=== PATIENT | male | born 1940 | race Caucasian/White ===

== ENCOUNTER 2023-08-14 10:23 | Observation (INO) ==
--- NOTE | 2023-08-13 10:22 | Anesthesiology Consultation ---
Date of Service August 13, 2023 Assessment & Plan (1) Encounter for pre-operative examination: Plan - check BSG am DOS. - [place] [place] pacemaker. MRSA positive 06/24/23: requires contact precautions - Case discussed in extensive detail with Dr. Bassett who advised patient is acceptable to proceed with surgery as scheduled without further evaluation or testing, advised to surgeon's discretion regarding new gluteal wound. Surgeon's office notified. OR, surgeon's office and infection control made aware of recent MRSA positive report as patient will require contact precautions. - wound care 08/12/23: "...new wound to his left gluteal region. Most likely related to stool incontinence...also seen today for a vascular area to his left calf...history of vascular ulcerations to his lower legs, feet and toes...today left calf has improved, smaller in size. 06/24/23: resident wound culture + MRSA...left calf wound...left heel wound..." - cardiology office visit 02/05/23: "...history of significant CAD. In the recent past he's had a noninvasive ALEX to the LAD, stent to the Cx, and in June 2019 a stent to the RCA...urologic problems...being considered for surgical repa ir...work-up for preoperative cardiac risk evaluation and this included a stress test which was positive...proceeded to catheterization which showed residual nonobstructive CAD...cardiac catheterization showed no residual obstructive disease...would be considered low to intermediate risk for urologic surgery..." - dulaglutide instructions: Last dose 08/06/23 per PAT RN. - Per assessment consultant on 08/13/23: No known infectious disease contacts, current infectious disease symptoms in past 10 days or COVID positive test result in the past 30 days. COVID test received from [facility] is old for procedure, order placed for COVID test DOS. Chart Review Chart Review: Acceptable Risk for Surgery and Patient NOT seen in Pre Admission Testing History Surgery Operation Date: 08/14/23 11:50 Proposed Procedures p Transurethral Resection Prostate, - Rich Doran DO s Possible Suprapubic Catheter - Rich Doran DO Height/Weight Height: 5 ft 11 in Weight: 104.326 kg Allergies Allergy/AdvReac Type Severity Reaction Status Date / Time [place]ip[place] [[place] [facility] Allergy Unknown listed in Verified 08/13/23 10:36 retirement H&P Medications Home Medications Medication Instructions Recorded Confirmed Last Taken Prevagen 1 cap PO QAM 08/13/23 08/13/23 Unknown acetaminophen 325 mg tablet 650 mg PO QID PRN Pain 08/13/23 08/13/23 Unknown acetic acid 0.25 % irrigation 10 ml irrigation Q7D 08/13/23 08/13/23 Unknown solution albuterol sulfate 2.5 mg/3 mL 2.5 mg inhalation QID PRN Wheezing 08/13/23 08/13/23 Unknown (0.083 %) solution for nebulization allopurinol 100 mg tablet 100 mg PO QAM 08/13/23 08/13/23 Unknown aspirin 81 mg capsule 81 mg PO QAM 08/13/23 08/13/23 Unknown atorvastatin 40 mg tablet 40 mg PO QAM 08/13/23 08/13/23 Unknown bisacodyl 10 mg rectal suppository 10 mg [place] DAILY PRN Constipation 08/13/23 08/13/23 Unknown (Dulcolax (bisacodyl)) celecoxib 200 mg capsule 200 mg PO DAILY PRN Breakthrough 08/13/23 08/13/23 Unknown Pain cetylpyridinium chloride 1 bree mucous membrane Q4H PRN Sore 08/13/23 08/13/23 Unknown Throat coal tar 0.5 % shampoo 1 applic topical UD 08/13/23 08/13/23 Unknown dextromethorphan-guaifenesin 10 10 ml PO Q4H PRN Cough 08/13/23 08/13/23 Unknown mg-100 mg/5 mL oral liquid (Tussin DM) dulaglutide 1.5 mg/0.5 mL 1.5 mg subcut Q7D 08/13/23 08/13/23 Unknown subcutaneous pen injector (Trulicity) flavoxate 100 mg tablet 100 mg PO Q6H PRN Bladder Spasms 08/13/23 08/13/23 Unknown fluticasone furoate 100 1 ea inhalation QAM 08/13/23 08/13/23 Unknown mcg-vilanterol 25 mcg/dose inhalation powder (Breo Ellipta) honey 80 % topical gel (MediHoney 1 applic topical BID 08/13/23 08/13/23 Unknown (honey)) ketoconazole 2 % topical cream 1 applic topical UD 08/13/23 08/13/23 Unknown linaclotide 72 mcg capsule 72 mcg PO QAM 08/13/23 08/13/23 Unknown (Linzess) metoprolol succinate 50 mg 50 mg PO QAM 08/13/23 08/13/23 Unknown tablet,extended release 24 hr mineral oil 118 ml [place] DAILY PRN Constipation 08/13/23 08/13/23 Unknown mirabegron 50 mg tablet,extended 50 mg PO QAM 08/13/23 08/13/23 Unknown release 24 hr (Myrbetriq) polyethylene glycol 3350 17 17 g PO QAM 08/13/23 08/13/23 Unknown gram/dose oral powder (Miralax) sodium chloride 0.9 % (flush) 10 ml intra-catheter Q1H PRN 08/13/23 08/13/23 Unknown (Normal Saline Flush 0.9 % hematuria injection syringe) sodium chloride 0.9 % nasal spray 1 spray intranasal TID 08/13/23 08/13/23 Unknown aerosol (Nasal Mist) sodium hypochlorite 0.125 % 1 irrig topical BID 08/13/23 08/13/23 Unknown solution (Dakin's Solution) torsemide 20 mg tablet 80 mg PO QAM 08/13/23 08/13/23 Unknown zinc oxide 40 % topical ointment 1 applic topical UD PRN MASD 08/13/23 08/13/23 Unknown Past Medical History Medical History (Updated 08/13/23 @ 14:00 by Karlene Ferguson PA-C) Bladder cancer BPH (benign prostatic hyperplasia) CAD (coronary artery disease) s/p CABG x 1 to LAD, stent to Cx and stent to RCA in 06/2019 per cardio records Chronic renal disease, stage IV Chronic systolic (congestive) heart failure EF > 50% Constipation drug induced COPD (chronic obstructive pulmonary disease) DM2 (diabetes mellitus, type 2) Gluteal cleft wound 08/12/23 per wound care Gout Heart block Hereditary spastic paraplegia History of MRSA infection 06/2023 History of venous stasis ulcer of lower leg lt calf, MRSA positive 06/2023 Hx of acute renal failure Hypercholesteremia Hypertension 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 heart failure, with stage 1 through stage 4 chronic kidney disease, or unspecified chronic kidney disease IBS (irritable bowel syndrome) Ischemic cardiomyopathy Neurogenic bladder chronic foster cath in place [facility] resident Pacemaker Personal history of other infectious and parasitic diseases 06/25/2023, MRSA of left calf wound-s/p 10 days of clindamycin, follows with wound care per RN [place] with [facility] mendosa Past Surgical History Surgical History Presence of urogenital implants S/P placement of cardiac pacemaker Surgical history unknown only 2 surgeries noted on retirement report as of 08/12/23 Social History Smoking Status: Unknown if ever smoked Testing Laboratory Results COVID test 08/08/23: negative. 07/24/23 WBC: 12.7 H/H: 12/40 PLATELETS: 312,000 07/28/23 SODIUM: 139 POTASSIUM: 3.8 CHLORIDE: 103 CO2: 31 BUN: 57 CREATININE: 2 GLUCOSE: 151 Urine culture: > 100,000 cfu/ml E coli ESBL 50,000 cfu/ml Stenotrophomonas maltophilia Electrocardiogram Date: 07/27/23 Demand pacemaker Unusual P axis, possible ectopic atrial bradycardia with occasional and consecutive PVs and fusion complexes Left axis deviation RBBB LVH EKG 07/24/23 "Ventricular paced rhythm at 101 bpm, PVC" No available tracing Chest X-Ray Date: 07/24/23 No active cardiopulmonary disease. Cardiac pacemaker device No significant changes Echocardiogram Date: 12/10/22 EF 55-60% Normal LV wall motion Mild mitral regurgitation Mild tricuspid regurgitation Stress Test Date: 12/10/22 Pharmacologic Medium reversible anterior defect, medium reversible apical defect Cardiac Catheterization Date: 01/15/23 Left main: angiographically normal LAD: proximally there is mild diffuse disease. Stent begins in the LAD and extends into the first diagonal. The LAD past this is 100% occluded. The more distal LAD is supplied by ALEX to LAD. Cx: mild diffuse disease large OM branches; diffuse disease in the trivial OM1 RCA: 40-50% proximal disease. Mild diffuse disease in the mid AV groove. Mid to distal AV groove has a patent stent. Distal AV grove has 40% disease. Otherwise there are mild luminus irregularities present in the system ALEX to the LAD widely patent, downstream LAD supplied by the graft has minimal disease EF 50%, multiple PVCs Residual stable CAD Other Testing Abdomen pelvis CT 06/25/23 1. No renal or ureteral stones. No hydronephrosis. 2. The tip of the Foster catheter is located within the bladder lumen. However, the balloon of the Foster catheter is located within the prostatic urethra. Therefore, this should be removed/reposition. 3. Mild bladder wall thickening. This could be due to underdistention or chronic outlet obstruction from the enlarged prostate gland. Recommend correlation with urinalysis to exclude a cystitis. 4. Healing/healed left anterior seventh rib fracture. No acute fractures identified. 5. No bowel wall thickening or obstruction. 6. Moderate fecal retention. 7. Additional findings as described above.
--- NOTE | 2023-08-13 10:25 | PAT Medication Instructions ---
Medication Instructions Date of Service August 13, 2023 Home Medications Prevagen 1 cap PO QAM acetaminophen 325 mg tablet 650 mg PO QID PRN Pain acetic acid 0.25 % irrigation solution 10 ml irrigation Q7D albuterol sulfate 2.5 mg/3 mL (0.083 %) solution for nebulization 2.5 mg inhalation QID PRN Wheezing allopurinol 100 mg tablet 100 mg PO QAM aspirin 81 mg capsule 81 mg PO QAM atorvastatin 40 mg tablet 40 mg PO QAM bisacodyl 10 mg rectal suppository (Dulcolax (bisacodyl)) 10 mg [place] DAILY PRN Constipation celecoxib 200 mg capsule 200 mg PO DAILY PRN Breakthrough Pain cetylpyridinium chloride 1 bree mucous membrane Q4H PRN Sore Throat coal tar 0.5 % shampoo 1 applic topical UD dextromethorphan-guaifenesin 10 mg-100 mg/5 mL oral liquid (Tussin DM) 10 ml PO Q4H PRN Cough dulaglutide 1.5 mg/0.5 mL subcutaneous pen injector (Trulicity) 1.5 mg subcut Q7D flavoxate 100 mg tablet 100 mg PO Q6H PRN Bladder Spasms fluticasone furoate 100 mcg-vilanterol 25 mcg/dose inhalation powder (Breo Ellipta) 1 ea inhalation QAM honey 80 % topical gel (MediCritique^Itney (honey)) 1 applic topical BID ketoconazole 2 % topical cream 1 applic topical UD linaclotide 72 mcg capsule (Linzess) 72 mcg PO QAM metoprolol succinate 50 mg tablet,extended release 24 hr 50 mg PO QAM mineral oil 118 ml [place] DAILY PRN Constipation mirabegron 50 mg tablet,extended release 24 hr (Myrbetriq) 50 mg PO QAM polyethylene glycol 3350 17 gram/dose oral powder (Miralax) 17 g PO QAM sodium chloride 0.9 % (flush) (Normal Saline Flush 0.9 % injection syringe) 10 ml intra-catheter Q1H PRN hematuria sodium chloride 0.9 % nasal spray aerosol (Nasal Mist) 1 spray intranasal TID sodium hypochlorite 0.125 % solution (Dakin's Solution) 1 irrig topical BID torsemide 20 mg tablet 80 mg PO QAM zinc oxide 40 % topical ointment 1 applic topical UD PRN MASD Continue as directed acetic acid 0.25 % irrigation solution 10 ml irrigation Q7D sodium chloride 0.9 % (flush) (Normal Saline Flush 0.9 % injection syringe) 10 ml intra-catheter Q1H PRN hematuria sodium hypochlorite 0.125 % solution (Dakin's Solution) 1 irrig topical BID ASK your surgeon for instructions celecoxib 200 mg capsule 200 mg PO DAILY PRN Breakthrough Pain ASK your prescriber and surgeon aspirin 81 mg capsule 81 mg PO QAM STOP taking 2 weeks before surgery (or as soon as possible) Prevagen 1 cap PO QAM STOP taking 7 days before surgery dulaglutide 1.5 mg/0.5 mL subcutaneous pen injector (Trulicity) 1.5 mg subcut Q7D (per records Trulicity on hold since 08/06/23- do not restart until after surgery 08/14/23) STOP taking 24 hours before surgery honey 80 % topical gel (DramaFeverney (honey)) 1 applic topical BID ketoconazole 2 % topical cream 1 applic topical UD DO NOT take the morning of surgery bisacodyl 10 mg rectal suppository (Dulcolax (bisacodyl)) 10 mg [place] DAILY PRN Constipation cetylpyridinium chloride 1 bree mucous membrane Q4H PRN Sore Throat coal tar 0.5 % shampoo 1 applic topical UD dextromethorphan-guaifenesin 10 mg-100 mg/5 mL oral liquid (Tussin DM) 10 ml PO Q4H PRN Cough flavoxate 100 mg tablet 100 mg PO Q6H PRN Bladder Spasms linaclotide 72 mcg capsule (Linzess) 72 mcg PO QAM mineral oil 118 ml [place] DAILY PRN Constipation mirabegron 50 mg tablet,extended release 24 hr (Myrbetriq) 50 mg PO QAM polyethylene glycol 3350 17 gram/dose oral powder (Miralax) 17 g PO QAM torsemide 20 mg tablet 80 mg PO QAM Take morning of surgery With a small sip of water, OTHERWISE NOTHING TO EAT OR DRINK AFTER MIDNIGHT: acetaminophen 325 mg tablet 650 mg PO QID PRN Pain (if needed) albuterol sulfate 2.5 mg/3 mL (0.083 %) solution for nebulization 2.5 mg inhalation QID PRN Wheezing (if needed) allopurinol 100 mg tablet 100 mg PO QAM atorvastatin 40 mg tablet 40 mg PO QAM fluticasone furoate 100 mcg-vilanterol 25 mcg/dose inhalation powder (Breo Ellipta) 1 ea inhalation QAM metoprolol succinate 50 mg tablet,extended release 24 hr 50 mg PO QAM sodium chloride 0.9 % nasal spray aerosol (Nasal Mist) 1 spray intranasal TID Take evening before surgery acetaminophen 325 mg tablet 650 mg PO QID PRN Pain (if needed) albuterol sulfate 2.5 mg/3 mL (0.083 %) solution for nebulization 2.5 mg inhalation QID PRN Wheezing (if needed) bisacodyl 10 mg rectal suppository (Dulcolax (bisacodyl)) 10 mg [place] DAILY PRN Constipation (if needed) cetylpyridinium chloride 1 bree mucous membrane Q4H PRN Sore Throat (if needed) coal tar 0.5 % shampoo 1 applic topical UD (if needed) dextromethorphan-guaifenesin 10 mg-100 mg/5 mL oral liquid (Tussin DM) 10 ml PO Q4H PRN Cough (if needed) flavoxate 100 mg tablet 100 mg PO Q6H PRN Bladder Spasms (if needed) mineral oil 118 ml [place] DAILY PRN Constipation (if needed) sodium chloride 0.9 % nasal spray aerosol (Nasal Mist) 1 spray intranasal TID Other Notes If you have any questions please call us at [phone] or [phone] or [phone] or [phone]
[2023-08-14] MEDS: LACTATED RINGER'S 1,000 ML IV SCH (11:08)
[2023-08-14] MEDS ORDERED: ePHEDrine sulfate 50 MG/ML AMP IV PRN (11:27)
[2023-08-14] MEDS ORDERED: PROMETHAZINE HCL 6.25 MG in SODIUM CHLORIDE 0.9% 50 ML IV PRN (11:27)
[2023-08-14] MEDS ORDERED: ATROPINE SULFATE 0.1 MG/ML 10ML SYR IV PRN (11:27)
[2023-08-14] MEDS ORDERED: HYDROmorphone INJ 1 MG/ML SYRINGE IV PRN (11:27)
--- NOTE | 2023-08-14 11:27 | History & Physical Report ---
Date of Service August 14, 2023 Assessment & Plan (1) Bladder cancer: (2) Status post implantation of artificial urinary sphincter: (3) Chronic indwelling Foster catheter: (4) Neurogenic bladder: Plan Risks and benefits discussed at length for procedure. These include bleeding, infection, injury to surrounding tissues or organs, and risks associated with anesthesia. Patient states understanding and agrees to proceed. Will sign consent and proceed. Significant chronic issues with chronic leakage and bother. Was considering options for managment. Significant issues with retention, catheter issues, and control. Chronic medical issues at baseline. Plan for TURP with possible suprapubic catheter. History of Present Illness Primary Care Provider: Tami Waddell, Patient here for procedure. No changes in medical issues. No major changes in urinary issues. Continued issues and concerns. No change in pain or discomfort. No severe fevers or chills. No chest pain or shortness of breath. Risks and benefits discussed at length for procedure. These include bleeding, infection, injury to surrounding tissues or organs, and risks associated with anesthesia. Patient and/or family states understanding and agrees to proceed. Consent and supporting information completed. Allergies Allergy/AdvReac Type Severity Reaction Status Date / Time amlodipine [From [facility]] Allergy Unknown listed in Verified 08/14/23 10:50 retirement H&P Home Medications Medication Instructions Recorded Confirmed Type Prevagen 1 cap PO QAM 08/13/23 08/14/23 History acetaminophen 325 mg tablet 650 mg PO QID PRN Pain 08/13/23 08/14/23 History acetic acid 0.25 % irrigation 10 ml irrigation Q7D 08/13/23 08/14/23 History solution albuterol sulfate 2.5 mg/3 mL 2.5 mg inhalation QID PRN Wheezing 08/13/23 08/14/23 History (0.083 %) solution for nebulization allopurinol 100 mg tablet 100 mg PO QAM 08/13/23 08/14/23 History aspirin 81 mg capsule 81 mg PO QAM 08/13/23 08/14/23 History atorvastatin 40 mg tablet 40 mg PO QAM 08/13/23 08/14/23 History bisacodyl 10 mg rectal suppository 10 mg [place] DAILY PRN Constipation 08/13/23 08/14/23 History (Dulcolax (bisacodyl)) celecoxib 200 mg capsule 200 mg PO DAILY PRN Breakthrough 08/13/23 08/14/23 History Pain cetylpyridinium chloride 1 bree mucous membrane Q4H PRN Sore 08/13/23 08/14/23 History Throat coal tar 0.5 % shampoo 1 applic topical UD 08/13/23 08/14/23 History dextromethorphan-guaifenesin 10 10 ml PO Q4H PRN Cough 08/13/23 08/14/23 History mg-100 mg/5 mL oral liquid (Tussin DM) dulaglutide 1.5 mg/0.5 mL 1.5 mg subcut Q7D 08/13/23 08/14/23 History subcutaneous pen injector (Trulicity) flavoxate 100 mg tablet 100 mg PO Q6H PRN Bladder Spasms 08/13/23 08/14/23 History fluticasone furoate 100 1 ea inhalation QAM 08/13/23 08/14/23 History mcg-vilanterol 25 mcg/dose inhalation powder (Breo Ellipta) honey 80 % topical gel (MediHoney 1 applic topical BID 08/13/23 08/14/23 History (honey)) ketoconazole 2 % topical cream 1 applic topical UD 08/13/23 08/14/23 History linaclotide 72 mcg capsule 72 mcg PO QAM 08/13/23 08/14/23 History (Linzess) metoprolol succinate 50 mg 50 mg PO QAM 08/13/23 08/14/23 History tablet,extended release 24 hr mineral oil 118 ml [place] DAILY PRN Constipation 08/13/23 08/14/23 History mirabegron 50 mg tablet,extended 50 mg PO QAM 08/13/23 08/14/23 History release 24 hr (Myrbetriq) polyethylene glycol 3350 17 17 g PO QAM 08/13/23 08/14/23 History gram/dose oral powder (Miralax) sodium chloride 0.9 % (flush) 10 ml intra-catheter Q1H PRN 08/13/23 08/14/23 History (Normal Saline Flush 0.9 % hematuria injection syringe) sodium chloride 0.9 % nasal spray 1 spray intranasal TID 08/13/23 08/14/23 History aerosol (Nasal Mist) sodium hypochlorite 0.125 % 1 irrig topical BID 08/13/23 08/14/23 History solution (Dakin's Solution) torsemide 20 mg tablet 80 mg PO QAM 08/13/23 08/14/23 History zinc oxide 40 % topical ointment 1 applic topical UD PRN MASD 08/13/23 08/14/23 History Past Med/Surg History Medical History Gluteal cleft wound 08/12/23 per wound care History of MRSA infection 06/2023 group home resident Hypercholesteremia Hypertension IBS (irritable bowel syndrome) History of venous stasis ulcer of lower leg lt calf, MRSA positive 06/2023 Gout Personal history of other infectious and parasitic diseases 06/25/2023, MRSA of left calf wound-s/p 10 days of clindamycin, follows with wound care per KASSY Oakes with [facility] mendosa Chronic systolic (congestive) heart failure EF > 50% 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 heart failure, with stage 1 through stage 4 chronic kidney disease, or unspecified chronic kidney disease Hx of acute renal failure Chronic renal disease, stage IV DM2 (diabetes mellitus, type 2) CAD (coronary artery disease) s/p CABG x 1 to LAD, stent to Cx and stent to RCA in 06/2019 per cardio records Ischemic cardiomyopathy Hereditary spastic paraplegia Pacemaker Heart block BPH (benign prostatic hyperplasia) Neurogenic bladder chronic foster cath in place Bladder cancer COPD (chronic obstructive pulmonary disease) Constipation drug induced Surgical History Surgical history unknown only 2 surgeries noted on retirement report as of 08/12/23 Presence of urogenital implants S/P placement of cardiac pacemaker Social History Smoking Status: Unknown if ever smoked Preferred Language: Spanish Communication Ability: unknown [place] Required: No Current Living Situation: Skilled Nursing [facility] Assistive Devices Comment: unknown Review of Systems All systems reviewed & are unremarkable except as noted in HPI & below Physical Exam Physical Exam: General: Alert/Arousable. No Acute illness. Baseline significant chronic issues. HEENT: Inspection normal. Normal inspection of face. Normal inspection of neck. Psychologic: Normal affect/No change in mentation. Respiratory: No use of accessory muscles. No respiratory changes or exacerbation or changes with tachypnea or dyspnea. Cardiovascular: No tachycardia Skin: Spry and Dry. No new rashes or visible lesions. Abdomen: Normal inspection. No guarding. Results & Data Vital Signs (Past 12 Hours) Vital Signs Temp Pulse Resp BP Pulse Ox O2 Del Method 08/14/23 10:54 Room Air 08/14/23 10:54 36.6 C 78 20 131/74 97 Room Air PG Care Time/CCT Total # of Minutes Spent Total Time Spent with Patient: Total time spent is greater than 50% in coordination of care (as documented) at patient's floor/unit and/or counseling patient: Coding Level of Care Code None Diagnoses Bladder cancer C67.9 Status post implantation of artificial urinary sphincter Z96.0 Chronic indwelling Foster catheter Z97.8 Neurogenic bladder N31.9
[2023-08-14] MEDS ORDERED: DEXAMETHASONE SOD INJ 4 MG/ML VIAL ONE (11:43)
[2023-08-14] MEDS ORDERED: PROPOFOL IV EMULSION 10 MG/ML 20 ML VIAL IV ONE (11:43)
[2023-08-14] MEDS ORDERED: LIDOCAINE 2% 2 ML VIAL/AMP(20MG/ML) INFIL ONE (11:43)
[2023-08-14] MEDS ORDERED: ONDANSETRON INJ 2 MG/ML 2 ML VIAL ONE (11:43)
[2023-08-14] MEDS ORDERED: fentaNYL citrate PF 100 MCG/2 ML VIAL ONE (11:44)
[2023-08-14] MEDS ORDERED: PHENYLEPHRINE 100MCG/ML 10ML SYR IV ONE (12:53)
--- NOTE | 2023-08-14 13:21 | Operative Report ---
PG Post Operative Report Pre & Post Diagnosis Operation Date: 08/14/23 11:50 Pre-Op Diagnosis: Bladder Cancer, Neurogenic Bladder Post-Op Diagnosis: Bladder Cancer, Neurogenic Bladder I identified the patient and participated in the time-out.: Yes Procedure Operation Date: 08/14/23 11:50 Actual Procedures Transurethral Resection of Prostate, Transurethral resection of bladder tumor, large - Rich Doran DO Surgeon Rich Doran, II, DO Spin Tank Tender None Estimated Blood Loss 10 Findings Consistent with Post-Op Diagnosis Large Mass vs Regrowth within the prostatic urethra along the left lateral wall. Significant Prostate tissue with obstruction. Papillary vs edematous lesion along the anterior bladder/dome. Approx 6.2 cm area resected Polypoid lesion of right trigone near UO. Specimens Prostate adenoma. Resection Dome/Anterior bladder Resection of Right Trigone Drains 22Fr Coude Catheter Anesthesia Type General Complications none Disposition Disposition: Recovery Room Indications Patient with obstruction due to prostate enlargement. Risks and benefits discussed at length. Description of Procedure Patient was consented and brought back to the operating room. Patient was placed under anesthesia in the supine position and moved to the dorsal lithotomy position. Patient was prepped and draped in the regular sterile fashion. A time out was completed. A 30degree Cystoscope was placed into the bladder and the entire bladder was examined. The UO's were identified as well as the bladder neck, trigone, dome, and the other important landmarks. The prostatic urethra and large lobes/adenoma was assessed and the veru and bladder neck identified and area/size was assessed. There was a nodular appearing mass versus regrowth within the prostatic urethra along the left lateral wall. A cause considerable obstructive issues within the prostatic urethra. There were numerous large prostatic varicosities throughout this tissue. The tissue was difficult to bypassed. The scope had to be maneuvered past it. Within the bladder there were multiple areas of edematous changes there were thickening along the posterior wall. The large diverticulum along the posterior wall was noted with inflammatory changes along it. Near the right UO in the right trigone there was a polypoid lesion that was discovered. Along the anterior portion of the bladder and the dome there was what appeared to be a large patch of papillary lesion. Possibly inflammatory versus edematous changes but with an irregular appearance to it. The location of the lesion along the dome and anterior bladder was specifically concerning due to the original plan to move forward with suprapubic catheter placement. Due to the presence of the lesion it was decided to hold off and to focus on resecting the lesion in order to fully assess it. The resection scope was placed and the fine bipolar loop was selected. Starting at the 5 and 7 o'clock positions, a channel was created from bladder neck to the veru. The entire left lateral wall was then resected. The tissue was nodular in appearance. It had multiple thickened areas and a large amount of varicosity throughout the tissue. The entire tissue was able to be resected down to what appeared to be capsule fibers. The Specimen was removed and sent for analysis. The resection bed and any bleeding areas were fulgurated/cauterized and the entire area inspected. All bleeding was controlled. The small polypoid lesion near the right UO was then assessed. This was able to be resected. The UO was not involved in the resection. And urine was noted to be effluxing out of the ureter bilaterally without major issue. This was sent for pathologic analysis. The anterior bladder/dome was then resected. A larger area was noted with large amount of inflammatory changes around it. There was inflammation along the posterior wall as well. These areas of inflammation were fulgurated. With the lesion resected from the anterior bladder this was then also sent for pathologic analysis. The bladder was inspected a final time. All bleeding had been controlled. The bladder lesions had been adequately dealt with with resection and fulguration. The ureters were draining well without major issue. The severe obstruction within the prostatic urethra had been drastically reduced and cleared. The bladder was emptied and irrigated. All specimen and debris was removed. The scope was removed with the bladder partially full. A catheter was placed and balloon elevated. This was easily irrigated. The patient was cleaned, aroused from anesthesia, and transferred to the pacu in stable condition having tolerated the procedure well with no complications. I was present and participated in all aspects of the procedure. The patient will be monitored in the PACU until transferred. Will plan to maintain catheter for approximately a month. Will have patient return for follow-up in approximately 3-4 weeks. Will discuss pathology at that time. Could consider catheter removal at that time. I attest to the content of the Intraoperative Record and any orders documented therein. Any exceptions are noted below.
[2023-08-14] MEDS ORDERED: bisacodyL 10 MG SUPP PR PRN (13:26)
[2023-08-14] MEDS ORDERED: ALBUTEROL 0.083% NEBU SOLN 3 ML VIAL INH PRN (13:26)
[2023-08-14] MEDS ORDERED: oxyBUTYnin chloride 5 MG TAB PO PRN (13:27)
[2023-08-14] MEDS ORDERED: MoRPHine SULFATE 2 MG/ML CARP IV PRN (13:27)
[2023-08-14] MEDS ORDERED: PHENAZOPYRIDINE HCL 200 MG TAB PO PRN (13:27)
[2023-08-14] MEDS ORDERED: ONDANSETRON INJ 2 MG/ML 2 ML VIAL IV PRN (13:27)
[2023-08-14] MEDS ORDERED: oxyCODONE/ACETAMINOPHEN 5mg/325mg TAB PO PRN (13:27)
--- NOTE | 2023-08-14 14:17 | Anesthesiology Progress Note ---
Date of Service August 14, 2023 Anesthesia Post Procedure Vital Signs Vital Signs: Temp Pulse Pulse Resp BP Pulse Ox O2 Del Method 08/14/23 14:15 79 14 102/51 L 92 Room Air 08/14/23 14:05 84 16 101/56 L 92 Room Air 08/14/23 13:55 78 16 104/54 L 95 Room Air 08/14/23 13:45 77 17 107/54 L 97 Room Air 08/14/23 13:35 83 17 105/55 L 99 Room Air 08/14/23 13:29 36.0 C L 83 15 124/69 100 Room Air 08/14/23 10:54 Room Air 08/14/23 10:54 36.6 C 78 20 131/74 97 Room Air Transfer of Care Handoff Completed per policy Notes Mental Status: alert / awake / arousable and participated in evaluation Nausea / Vomiting: adequately controlled Pain: adequately controlled Airway Patency, RR, SpO2: stable & adequate BP & HR: stable & adequate Hydration State: stable & adequate Anesthetic Complications: no major complications apparent and Pt Satisfied with anesthetic care
[2023-08-14] MEDS ORDERED: BUTT PASTE (ZINC OXIDE 16%) 171 APPLN/57 GM JAR EXT PRN (15:17)
[2023-08-14] MEDS: PIPER/TAZO 4.5g in D5W MINI-B 100 ML IV ONE (15:26)
[2023-08-14] MEDS: SODIUM CHLORIDE 0.9% 1,000 ML IV SCH (16:56)
[2023-08-14 18:01] LABS: Hemoglobin 13.2 g/dl (14.0-18.0); Mean Corpuscular Hemoglobin 27.4 pg (25.0-34.0); Mean Corpuscular Hgb Conc 31.4 g/dL (32.0-36.0); Mean Corpuscular Volume 87.1 fL (80.0-100.0); Mean Platelet Volume 10.9 fL (9.4-12.4); Platelet Count 140 K/uL (130-400); RDW Coefficient of Variation 16.3 % (11.5-14.5); RDW Standard Deviation 51.5 fL (36.4-46.3); Red Blood Count 4.82 M/uL (4.70-6.10); White Blood Count 7.72 K/ul (4.8-10.8)
[2023-08-14 18:16] LABS: BUN Creatinine Ratio 18.7 (10-20); Calcium 9.1 mg/dl (8.6-10.3); Creatinine Clr Calc Pharmacy 40.9 ml/min; Est GFR (African American) 43.5 ml/min; Est GFR (Non-African American) 37.5 ml/min; Potassium 4.5 mmol/L (3.5-5.1)
[2023-08-14 18:29] LABS: Basophils # (auto) 0.02 K/uL (0.00-0.20); Basophils % (auto) 0.3 %; Eosinophils # (auto) 0.03 K/uL (0.00-0.50); Eosinophils % (auto) 0.4 %; Immature Granulocytes # (auto) 0.02 K/uL (0.01-0.20); Immature Granulocytes % (auto) 0.3 %; Lymphocytes % (auto) 5.2 %; Monocytes # (auto) 0.12 K/uL (0.11-0.59); Monocytes % (auto) 1.6 %; Neutrophils # (auto) 7.13 K/uL (1.40-6.50); Neutrophils % (auto) 92.2 %; Ovalocytes 1+
[2023-08-14] MEDS ORDERED: GLUCAGON FOR INJ 1 MG VIAL SQ PRN (18:51)
[2023-08-14] MEDS ORDERED: GLUCOSE 40% GEL 15 GM TUBE PO PRN (18:51)
[2023-08-14] MEDS ORDERED: GLUCOSE 10 TAB/TUBE PO PRN (18:51)
[2023-08-14] MEDS ORDERED: DEXTROSE 50% 50 ML SYRINGE IV PRN (18:51)
[2023-08-14] MEDS ORDERED: CARBOHYDRATES FOR HYPOGLYCEMIA PO PRN (18:51)
--- NOTE | 2023-08-14 19:00 | Hospitalist Consultation ---
Date of Consultation August 14, 2023 Assessment & Plan (1) S/P TURP: -POD0 from TURP procedure for bladder cancer causing obstructive symptoms -Hgb 13.2 s/p OR -Pain control per urology primary -Agree with Zosyn for now, consider de-escalation to Rocephin if continued improvement and transition to PO agent cefdinir -Monitor CBC (2) CAD (coronary artery disease): -Chronic, stable, no ACS at present -Continue metoprolol, atorvastatin. Would recommend resuming aspirin on 3/1 g iven history of CABG + 2x stents (3) Chronic systolic (congestive) heart failure: -Chronic, stable, not in exacerbation -Euvolemic on exam -Continue metoprolol, torsemide (4) Heart block: -S/p pacemaker -No acute issues -Telemetry monitoring (5) COPD (chronic obstructive pulmonary disease): -Chronic, stable, not in exacerbation -Stable respiratory status on RA at present -Continue Breo, albuterol PRN (6) Chronic renal disease, stage IV: -Cr 1.66 on admission, unknown baseline -Monitor BMP (7) DM2 (diabetes mellitus, type 2): -BSGs elevated in low 200s -Diet switched to DM diet -SSI ordered, deferring basal coverage for now (8) Gout: -Continue allopurinol (9) IBS (irritable bowel syndrome): -Continue Linzess (10) Hypertension: -BP stable -Continue metoprolol (11) Hypercholesteremia: -Continue atorvastatin (12) History of venous stasis ulcer of lower leg: -Continue local wound care -Low suspicion for active infection, deferring additional MRSA coverage antibioics (13) Overactive bladder: -Continue Gemtesa Plan FENGI: DM2 diet Code status: Full DVT prophylaxis: SCDs Isolation: MRSA Unit: Medical/surgical with telemetry Disposition planning: Per urology Supervising Physician Co-Signing Physician Notes I have personally seen, evaluated and examined the patient. I have also personally discussed the management of the patient with the resident physician/DARSHANA and I agree with the exam findings documented in the history and physical examination and the documented assessment and plan unless otherwise stated below. Brief Exam: In general pleasant 83-year-old male who is alert and oriented x 3 at the time my exam interacts appropriately and pleasantly. 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 HEENT normocephalic atraumatic. Heart: Regular rate and rhythm I do not appreciate murmur or ectopy or rub. Lungs: Diminished but clear bilaterally no adventitious sounds. Abdomen: Soft nontender positive bowel sounds. Extremities: Multiple wounds dressed he gets wound care at the [facility]. This should be continued. Wounds were not directly inspected. Neurologically: He is alert and oriented x 3 with no focal deficit he does have chronic lower extremity spasticity and weakness. He is essentially wheelchair- bound. Assessment/plan: As discussed above. Please refer to orders for further planning. We thank you for the opportunity to Coparticipate in the care of Mr. Nguyen as he convalesces his urological surgery. History of Present Illness Reason for Consultation: CAD, CHF, heart block, COPD Requesting Physician: Rich Doran DO Attending Physician: Rich Doran, II, DO History of Present Illness Pt is 83 yo M with PMH CAD s/p CABG + multiple stents, COPD, HTN, DM2, CKD3, HFpEF, IBS, gout, chronic wounds with history of MRSA infection, heart block s/p pacemaker who is now POD0 s/p TURP/TURBT for bladder cancer. Pt had TURP done today by urology, see operative note for further details. Seen at bedside, he denies any acute complaints. Denies any chest pain, dyspnea, palpitations, lightheadedness, abdominal pain. Allergies Allergy/AdvReac Type Severity Reaction Status Date / Time amlodipine [From [facility]] Allergy Unknown listed in Verified 08/14/23 10:50 [facility] H&P Home Medications Medication Instructions Recorded Confirmed Type Prevagen 1 cap PO QAM 08/13/23 08/14/23 History acetaminophen 325 mg tablet 650 mg PO QID PRN Pain 08/13/23 08/14/23 History acetic acid 0.25 % irrigation 10 ml irrigation Q7D 08/13/23 08/14/23 History solution albuterol sulfate 2.5 mg/3 mL 2.5 mg inhalation QID PRN Wheezing 08/13/23 08/14/23 History (0.083 %) solution for nebulization allopurinol 100 mg tablet 100 mg PO QAM 08/13/23 08/14/23 History aspirin 81 mg capsule 81 mg PO QAM 08/13/23 08/14/23 History atorvastatin 40 mg tablet 40 mg PO QAM 08/13/23 08/14/23 History bisacodyl 10 mg rectal suppository 10 mg ND DAILY PRN Constipation 08/13/23 08/14/23 History (Dulcolax (bisacodyl)) celecoxib 200 mg capsule 200 mg PO DAILY PRN Breakthrough 08/13/23 08/14/23 History Pain cetylpyridinium chloride 1 bree mucous membrane Q4H PRN Sore 08/13/23 08/14/23 History Throat coal tar 0.5 % shampoo 1 applic topical UD 08/13/23 08/14/23 History dextromethorphan-guaifenesin 10 10 ml PO Q4H PRN Cough 08/13/23 08/14/23 History mg-100 mg/5 mL oral liquid (Tussin DM) dulaglutide 1.5 mg/0.5 mL 1.5 mg subcut Q7D 08/13/23 08/14/23 History subcutaneous pen injector (Trulicity) flavoxate 100 mg tablet 100 mg PO Q6H PRN Bladder Spasms 08/13/23 08/14/23 History fluticasone furoate 100 1 ea inhalation QAM 08/13/23 08/14/23 History mcg-vilanterol 25 mcg/dose inhalation powder (Breo Ellipta) honey 80 % topical gel (MediHoney 1 applic topical BID 08/13/23 08/14/23 History (honey)) ketoconazole 2 % topical cream 1 applic topical UD 08/13/23 08/14/23 History linaclotide 72 mcg capsule 72 mcg PO QAM 08/13/23 08/14/23 History (Linzess) metoprolol succinate 50 mg 50 mg PO QAM 08/13/23 08/14/23 History tablet,extended release 24 hr mineral oil 118 ml ND DAILY PRN Constipation 08/13/23 08/14/23 History mirabegron 50 mg tablet,extended 50 mg PO QAM 08/13/23 08/14/23 History release 24 hr (Myrbetriq) polyethylene glycol 3350 17 17 g PO QAM 08/13/23 08/14/23 History gram/dose oral powder (Miralax) sodium chloride 0.9 % (flush) 10 ml intra-catheter Q1H PRN 08/13/23 08/14/23 History (Normal Saline Flush 0.9 % hematuria injection syringe) sodium chloride 0.9 % nasal spray 1 spray intranasal TID 08/13/23 08/14/23 History aerosol (Nasal Mist) sodium hypochlorite 0.125 % 1 irrig topical BID 08/13/23 08/14/23 History solution (Dakin's Solution) torsemide 20 mg tablet 80 mg PO QAM 08/13/23 08/14/23 History zinc oxide 40 % topical ointment 1 applic topical UD PRN MASD 08/13/23 08/14/23 History Patient History Medical History (Updated 08/14/23 @ 19:22 by Eleni Griffin MD) Gluteal cleft wound 08/12/23 per wound care History of MRSA infection 06/2023 senior living resident Hypercholesteremia Hypertension IBS (irritable bowel syndrome) History of venous stasis ulcer of lower leg lt calf, MRSA positive 06/2023 Gout Personal history of other infectious and parasitic diseases 06/25/2023, MRSA of left calf wound-s/p 10 days of clindamycin, follows with wound care per RN [facility] with [facility] Chronic systolic (congestive) heart failure EF > 50% 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 heart failure, with stage 1 through stage 4 chronic kidney disease, or unspecified chronic kidney disease Hx of acute renal failure Chronic renal disease, stage IV DM2 (diabetes mellitus, type 2) CAD (coronary artery disease) s/p CABG x 1 to LAD, stent to Cx and stent to RCA in 06/2019 per [facility] records Ischemic cardiomyopathy Hereditary spastic paraplegia Pacemaker Heart block BPH (benign prostatic hyperplasia) Neurogenic bladder chronic foster cath in place Bladder cancer COPD (chronic obstructive pulmonary disease) Constipation drug induced Surgical History (Updated 08/14/23 @ 19:14 by Eleni Griffin MD) Surgical history unknown only 2 surgeries noted on [facility] report as of 08/12/23 Presence of urogenital implants S/P placement of cardiac pacemaker Social History Smoking Status: Unknown if ever smoked Preferred Language: Malay Communication Ability: unknown Shop Service Technician Required: No Current Living Situation: [facility] Current Living Situation Comment: [facility] Review of Systems Review of Systems: Per HPI/Subjective Physical Exam Physical Exam: General: well-appearing, no acute distress HEENT: PERRL, EOMI, conjunctivae clear without injection, anicteric sclerae, moist mucous membranes, clear oropharynx without exudate or erythema Neck: supple, trachea midline, no thyromegaly, no JVD CV: RRR, normal S1 and S2, no murmurs Resp: CTAB, no increased work of breathing, no crackles or wheezes Abd: Soft, nontender, nondistended, no guarding or rebound, no hepatosplenomegaly : Foster draining yellow urine MSK: Normal bulk of all four extremities Neuro: AOx3, no focal motor or sensory deficits Skin: no rashes or lesions, warm and dry. LLE ankle with wound dressing, nontender. Ext: no LE peripheral edema or erythema, capillary refill <2s in all four extremities, 2+ LE peripheral pulses b/l Results & Data Results & Data Vital Signs (Past 12 Hours) Vital Signs Temp Pulse Pulse Pulse Resp BP Pulse Ox 08/14/23 16:47 36.5 C 85 20 118/66 93 08/14/23 16:10 85 16 97/68 L 94 08/14/23 16:00 88 08/14/23 15:55 82 18 108/61 95 08/14/23 15:40 84 20 119/82 95 08/14/23 15:25 81 16 107/62 93 08/14/23 15:10 85 20 124/69 91 08/14/23 14:55 82 13 94/59 L 92 08/14/23 14:40 80 18 102/63 93 08/14/23 14:25 72 13 95/53 L 94 08/14/23 14:15 79 14 102/51 L 92 08/14/23 14:05 84 16 101/56 L 92 08/14/23 13:55 78 16 104/54 L 95 08/14/23 13:45 77 17 107/54 L 97 08/14/23 13:35 83 17 105/55 L 99 08/14/23 13:29 36.0 C L 83 15 124/69 100 08/14/23 10:54 08/14/23 10:54 36.6 C 78 20 131/74 97 O2 Del Method 08/14/23 16:47 Room Air 08/14/23 16:10 Room Air 08/14/23 16:00 08/14/23 15:55 Room Air 08/14/23 15:40 Room Air 08/14/23 15:25 Room Air 08/14/23 15:10 Room Air 08/14/23 14:55 Room Air 08/14/23 14:40 Room Air 08/14/23 14:25 Room Air 08/14/23 14:15 Room Air 08/14/23 14:05 Room Air 08/14/23 13:55 Room Air 08/14/23 13:45 Room Air 08/14/23 13:35 Room Air 08/14/23 13:29 Room Air 08/14/23 10:54 Room Air 08/14/23 10:54 Room Air Resident Activity Tracking Resident Involvement: Resident Care Provided Care Provided: Adult Hospital Medicine
[2023-08-14] MEDS: CIPROFLOXACIN / D5W 400 MG/200 ML BAG IV SCH (19:14)
--- NOTE | 2023-08-14 19:41 | Billing Data ---
Date of Service August 14, 2023 Coding Level of Care Code 04580 IN/OBS CONSULT LVL 3,45M
[2023-08-14] MEDS: INSULIN ASPART PER UNIT CHARGE SC SCH (20:54)
[2023-08-14] MEDS: PIPERACILLIN/TAZOBACTAM 4.5 GM in DEXTROSE 5% MINI-B 100 ML IV SCH (21:01)
--- OUTSIDE RECORDS SUMMARY | 2023-08-15 05:08 | External Medical Summary | Summary of Care ---
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 Name Role Phone Tami Waddell DO Primary Care Provider [phone] Reason for Visit * Reason Comments Follow Up Encounter Details Date Type Department Care Team (Late st Contact Info) Description 08/13/2023 11:00 AM EST Office Visit [facility] [address] [place] [address] [facility] Lopez [phone] Dipak Merchant MD [address] [place] [address] [facility] Colbert [id number] Stage 3b chronic kidney disease (HCC)*; BPH with obstruction/lower urinary tract symptoms; Neurogenic bladder; HTN, goal below 140/90 Allergies Active Allergy Reactions Criticality Noted Date Comments Amlodipine Besylate Other (Please comment) Medium 03/16 Edema documented as of this encounter (statuses as of 08/13/2023) Medications Medication Sig Dispensed Refills Start Date End Date Status ASPIRIN 81 MG PO TABS Take by mouth. On hold currently 0 Active Polyethylene Glycol 3350 17 GM/SCOOP Oral Powder (Miralax)Indication s:Left inguinal hernia,Preop examination Take 17 g by mouth daily. 255 g 0 08/28/2020 Active Mirabegron ER 50 MG Oral Tablet Extended Release 24 Hour (Myrbetriq) Take by mouth 1 Tablet in the morning. 30 Tablet 6 12/24/2021 Active Prevagen 10 MG Oral Capsule (Apoaequorin) Take by mouth 10 mg . 0 08/24/2021 Active Allopurinol 300 MG Oral Tablet (Zyloprim)Indicatio ns:Hyperuricemia take 1 tablet by mouth once daily 90 Tablet 3 02/04/2022 Active guaiFENesin ER 600 MG Oral Tablet Extended Release 12 HourIndications:Vir al URI Take by mouth 1 Tablet in the morning AND 1 Tablet before bedtime. 20 Tablet 0 04/09/2022 Active Atorvastatin Calcium 40 MG Oral Tablet (Lipitor)Indication s:Dyslipidemia, goal LDL below 100 Take 1 Tablet (40 mg) by mouth in the morning. 90 Tablet 5 04/24/2022 Active Nystatin 488612 UNIT/GM External Powder (Nystop) Apply topically to affected area 2 times a day. Apply to skin folds 15 g 0 06/20/2022 Active Metoprolol Succinate ER 25 MG Oral Tablet Extended Release 24 Hour (toPROL XL) Take 1 Tablet by mouth in the morning. 30 Tablet 3 06/20/2022 Active Additional Information Patient taking differently: 50 mgOral Daily(AM), Informant: Transferring Facility Documents, Reported on 03/26/2023 Fleet Enema 7-19 GM/118ML Rectal Enema Administer 1 Enema into the rectum daily as needed for Constipation. 1 Each 0 06/20/2022 Active Torsemide 20 MG Oral Tablet (Demadex) 4 Tablets in the morning. 0 08/05/2022 Active Breo Ellipta 100-25 MCG/ACT Inhalation Aerosol Powder Breath Activated Inhale 1 Puff by mouth in the morning. 0 08/06/2022 Active Ipratropium-Albuter ol 0.5-2.5 (3) MG/3ML Inhalation Solution (Duoneb) Inhale 3 mL via nebulizer every 4 hours as needed. 0 08/10/2022 Active oxyCODONE HCl 5 MG Oral Tablet (Oxy IR) Take 1 Tablet by mouth every 4 hours as needed for Pain, Severe. 5 Tablet 0 08/14/2022 Active Docusate Sodium 100 MG Oral Capsule (Colace) Take 1 Capsule by mouth in the morning and 1 Capsule before bedtime. 60 Capsule 0 08/14/2022 Active Dulaglutide 1.5 MG/0.5ML Subcutaneous Solution Pen-injector (Trulicity)Indicati ons:Type 2 diabetes mellitus with hemoglobin A1c goal of less than 8.0% ([facility]) Inject 1.5 mg under the skin once a week. 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 0 03/07/2023 Active Bisacodyl 5 MG Oral Tablet Delayed Release (bisacodyl EC) Take 1 Tablet by mouth daily as needed for Constipation. 0 Active Linzess 72 MCG Oral Capsule 0 07/24/2023 Active Clindamycin HCl 300 MG Oral Capsule 0 06/26/2023 Active Amoxicillin-Pot Clavulanate 875-125 MG Oral Tablet (Augmentin) 0 06/20/2023 Active documented as of this encounter (statuses as of 08/13/2023) Active Problems Problem Noted Date Diagnosed Date S/P placement of cardiac pacemaker 06/13/2022 Mobitz type 1 second degree atrioventricular blo ck 06/11/2022 Bradycardia 06/07/2022 Benign hypertension with CKD (chronic kidney disease) stage IV 04/25/2021 Left inguinal hernia 06/26/2020 Overview: Left ing hernia Chronic kidney disease with symptom management only, stage 4 (severe) 06/26/2020 Old SD (myocardial infarction) 10/05/2019 Systolic CHF 05/19/2019 Coronary artery disease invo lving wilton coronary artery of wilton heart without angina pectoris 05/19/2019 S/P angioplasty with stent 05/19/2019 Overview: 04/03 done at the same time as single vessel CABG. S/P CABG x 1 05/19/2019 Overview: 04/03 done through a lateral approach. Done at the same time as stenting x2. Obstructive uropathy 05/19/2019 Overview: Requiring indwelling catheterization 05/04 Ischemic cardiomyopathy 03/26/2019 Primary osteoarthritis of both hands 04/01/2018 Ambulatory dysfunction 02/27/2018 Type 2 diabetes mellitus wit h hemoglobin A1c goal of less than 8.0% 09/15/2017 DM type 2 causing CKD stage 4 09/15/2017 Hyperuricemia 06/19/2017 Hypertensive heart disease w ith systolic heart failure and stage 4 chronic kidney disease 04/17/2017 ACEI/ARB contraindicated 04/17/2017 Obesity, Class I, BMI 30.0-34.9 (see actual BMI) 03/28/2017 PVC (premature ventricular contraction) 10/25/19 17 Erectile dysfunction following prostate ablative therapy 06/21/2016 Irritable bowel syndrome wit h both constipation and diarrhea 02/20/2016 Generalized edema 02/20/2016 HTN, goal below 140/90 10/17/2015 Gastroesophageal reflux disease with esophagitis 01/04/2015 Personal history of bladder cancer 07/12/2014 Neurogenic bladder 07/12/2014 Overview: Mostly related to his neurological condition, but may be related to CHOWDHURY from the persistent prostate gland. 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 Severe obesity (BMI 35.0-39. 9) with comorbidity 02/22/2019 09/14/2019 Elevated bilirubin 01/27/2019 9 Epistaxis 07/27/2018 01/27/2019 Overview: Left anterior nasal septal bleeder Gynecomastia, male 02/05/2018 9 Gout tophi 12/19/2017 02/22/2019 Herpes zoster without complication 12/19/2017 02/26/2018 Dyslipidemia 11/13/2017 01/27/2019 Bilateral leg edema 11/11/2017 11/14/19 18 Acute gout due to renal impa irment involving right hand 09/15/2017 07/27/2018 Gallstones 04/30/2017 05/19/2017 Chronic kidney disease with symptom management only, stage 3 (moderate) 03/28/201704/16 Overview: Chronic kidney disease with symptom management only, stage 3 (moderate) (HCC) Chest wall pain 10/24/2016 04/17/2017 Overview: Right sided chest pain with walking. CKD (chronic kidney disease) , symptom management only 06/21/2016 03/28/2017 Ambulatory dysfunction 12/12/201511/13 Obesity, Class II, BMI 35-39 .9, isolated (see actual BMI) 06/20/2015 06/20/2015 Severe obesity with body mas s index (BMI) of 35.0 to 39.9 with serious comorbidity 06/20/2015 Overview: ICD-10 update of inactive diagnosis Kidney disease, chronic, sta ge III (GFR 30-59 ml/min) 01/04/2015 06/21/2016 Kidney disease, chronic, sta ge IV (GFR 15-29 ml/min) 12/12/2014 01/04/2015 Trigger finger 12/12/2014 03/28/2017 Overview: Left thumb Orchitis, right 07/15/2014 03/28/2017 Overview: 05/29 Postoperative urethral stricture 07/12/2014 03/28/2017 Urge incontinence 07/12/2014 11/13/2017 LALA (stress urinary incontinence), male 06/25/2014 01/27/2019 Hydrocele of testis 05/16/2014 03/28/20 17 Overview: Right sided Former smoker 03/15/2014 02/26/2018 Obesity, Class I, BMI 30.0-3 4.9 (see actual BMI) 04/22/2013 10/17/2015 Edema 06/12/2012 02/20/2016 Elevated fasting glucose 11/07/2011 CKD (chronic kidney disease) stage 3, GFR 30-59 ml/min 11/07/2011 2012 Kidney disease, chronic, sta ge III (GFR 30-59 ml/min) 11/04/2011 12/12/2014 Overview: Per CKD protocol #1 Hypertension goal BP (blood pressure) < 140/90 06/25/2011 10/17/2015 OBESITY (BMI 30-34) 02/21/2011 04/22/20 13 STRESS INCONTINENCE 02/21/2011 11/07/19 12 DYSLIPIDEMIA WITH LOW HDL (g oal LDL below 100) 02/21/2011 05/19/2019 Screening for prostate cancer 05/11/2010 11/07/2011 OSTEOARTHRITIS 04/10/2010 11/13/2017 PILAR CYST OF LEFT FOREARM S/P REMOVAL 12/2312/19/2009 11/07/2011 6 SEBORRHEIC KERATOSIS OF BACK 12/19/2009 11/07/2011 1 HEMANGIOMA SKIN OF BACK 12/19/2009 Paraplegia 11/27/2009 04/17/2017 HTN, goal below 130/80 11/27/200906/25 Esophageal reflux 11/27/2009 01/04/2015 ESOPHAGEAL STRICTURE S/P DILATION 11/27/2009 11/13/2017 Family history of ischemic heart disease 11/27/2009 03/28/2017 TRANSITIONAL CELL CARCINOMA OF BLADDER 11/27/2009 06/25/2014 CONSTIPATION 11/27/2009 11/13/2017 Irritable bowel syndrome 11/27/200911/2015 Esophageal reflux 11/27/2009 04/17/2017 documented as of this encounter (statuses as of 08/13/2023) Immunizations Name Administration Dates Next Due COVID-19 mRNA, LNP-s, No Pre serve, 2-Dose Series (Moderna) 07/18/2020,06/20/2020 COVID-19, mRNA, LNP-s, PF, B ooster, 100mcg/0.5mg (Moderna) 06/19/2021 Pneumococcal Conjugate Vacc, 13 Valent (Prevnar) 10/17/2015 Pneumococcal Conjugate Vacci ne, 20-valent ([id number]) 03/20/2022 Pneumococcal Polysaccharide PPV23 (Pneumovax) 03/20/2009 Seasonal Influenza Virus Vac cine, Unspecified Formulation 03/15/2020,04/29/2001 Seasonal Influenza, PF, 6 M & above, IM , (FluLaval or Fluzone) 03/15/2020,02/27/2018 Seasonal Influenza, Quadriva lent Hd (Fluzone Hd) 03/08/2022,04/25/2021 Seasonal Influenza, Quadriva lent, No Preserve, IM 02/20/2016 Seasonal Influenza, Split, I IV3, With Preserve, Inj 02/13/2015,03/15/2014,04/22/2013,02/15,03/11/2011,03/29/2010 03/29/2011 Seasonal Influenza, Trivalen t, Adjuvanted, 65+ yrs 02/22/2019 Seasonal Influenza, Trivalen t, High Dose, No Preserve, IM 03/08/2022,03/28/2017 TDAP (age 10 and older)(Boostrix) 10/18/2020 TDAP (age 11 and older)(Adacel) 05/11/2010 Varicella Zoster Vaccine (Adult) 03/11/2012 Zoster Vaccine Recombinant (Shingrix) 11/29/2021 ,08/07/2021 documented as of this encounter Social History Tobacco Use Types Packs/Day Years Used Date Smoking Tobacco: Former Cigarettes 2 20 0 06/16/1963 - 06/16/1983 Smokeless Tobacco: Never Tobacco Cessation:Counseling Given: Not Answered Alcohol Use Standard Drinks/Week Comments No 0 (1 standard drink = 0.6 oz pur e alcohol) PHQ-2 Answer Date Recorded PHQ Adult Total Score 0 08/03/2021 Hunger Vital Sign Answer Date Recorded Worried About Running Out of Food in the Last Ye ar Never true 02/22/2019 Ran Out of Food in the Last Year Never true 02/22/2019 Sex and Gender Information Value Date Recorded Sex Assigned at Not on file Gender Identity Not on file Sexual Orientation Not on file Job Start Date Occupation Industry Not on file Not on file Not on file documented as of this encounter Last Filed Vital Signs Vital Sign Reading Time Taken Comments Blood Pressure 115/63 08/13/2023 11:07 AM EST Pulse 86 08/13/2023 11:07 AM EST Temperature - - Respiratory Rate - - Oxygen Saturation - - Inhaled Oxygen Concentration - - Weight 103 kg (227 lb) 08/13/2023 11:07 AM EST Height - - Body Mass Index 33.52 05/16/2023 9:07 AM EST documented in this encounter Functional Status Functional Status Response Date of Assess ment Are you deaf or do you have serious difficulty h earing? No 02/14/2021 Are you blind or do you have serious difficulty seeing, even when wearing glasses? No 02/14/2021 Do you have serious difficul ty walking or climbing stairs? (5 years old or older) No 06/11/2022 Do you have difficulty dress ing or bathing? (5 years old or older) No 02/14/2021 Because of a physical, menta l, or emotional condition, do you have difficulty doing errands alone such as visiting a doctor s office or shopping? (15 years old or older) No 02/15/20 Cognitive Status Response Date of Assessm ent Because of a physical, menta l, or emotional condition, do you have serious difficulty concentrating, remembering, or making decisions? (5 years old or older) No 02/14/2021 documented as of this encounter Progress Notes * Dipak Merchant MD - 08/13/2023 11:00 AM EST Leno Nguyen is a 83 year old male. Chief Complaint Patient presents with Follow Up Background: 83/M with hereditary spastic Paraplegia ( has chronic pain with that), HTN for many years, Mutliple bladder problems ( Cancer , BPH, Incontinence,s/p Explant eroded AUS placed elsewhere and ultimate salvage TC cuff. This worked well, but due to his progressive comorbidities he was unable to use well. -- now has indwelling catheter.) Has been taking Celebrex for many years. Creat has been abnormal for many years--1.7 to 2.0 from 2009 till 06/2014. Then in 11/2014 creat went to 2.6. Stopped Lisinopril and Celebrex changed to PRN ( but he must take it to function). Labs improved to baseline of 1.8. Had Urethral Surgery 05/2018 and h elped a lot. Takes Celebrex about 1-2 tabs per week because of Disabiity--Cannot function without this. Since last visit 05/2023: On Torsemide 80 daily, edema about the same., At rehab at [facility].OnAbx for cellutis of L leg. BP -- Mostly on 120 systolic with some fluctuation. Has foleys in place due to intermittent leaking urinary retention-- Seeing Urology for Surgery on Had Episode of Uti recently--completed Abx course @ 3-4 days before. 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 disease (HCC) I13.0, I50.20, N18.4 HEREDITARY SPASTIC PARAPLEGIA G82.20 ACEI/ARB contraindicated Z53.09 Hyperuricemia E79.0 Type 2 diabetes mellitus with hemoglobin A1c goal of less than 8.0% ([facility]) E11.9 DM type 2 causing CKD stage 4 (HCC) E11.22, N18.4 Ambulatory dysfunction R26.2 Primary osteoarthritis of both hands M19.041, M19.042 Ischemic cardiomyopathy I25.5 Systolic CHF ([facility]) I50.20 Coronary artery disease involving wilton coronary artery of wilton heart without angina pectoris I25.10 S/P angioplasty with stent Z95.820 S/P CABG x 1 Z95.1 Obstructive uropathy N13.9 Old SD (myocardial infarction) I25.2 Left inguinal hernia K40.90 Chronic kidney disease with symptom management only, stage 4 (severe) (HCC) N18.4 Benign hypertension with CKD (chronic kidney disease) stage IV (HCC) I12.9, N18.4 Bradycardia R00.1 Mobitz type 1 second degree atrioventricular block I44.1 S/P placement of cardiac pacemaker Z95.0 Current Outpatient Medications Medication Sig Dispense Refill ASPIRIN 81 MG PO TABS Take by mouth. On hold currently Polyethylene Glycol 3350 17 GM/SCOOP Oral Powder (Miralax) Take 17 g by mouth daily. (Patient not taking: Reported on 03/27/2023) 255 g 0 Mirabegron ER 50 MG Oral Tablet Extended Release 24 Hour (Myrbetriq) Take by mouth 1 Tablet in the morning. 30 Tablet 6 Prevagen 10 MG Oral Capsule (Apoaequorin) Take by mouth 10 mg . Allopurinol 300 MG Oral Tablet (Zyloprim) take 1 tablet by mouth once daily (Patient not taking: Reported on 05/23/2023) 90 Tablet 3 guaiFENesin ER 600 MG Oral Tablet Extended Release 12 Hour Take by mouth 1 Tablet in the morning AND 1 Tablet before bedtime. (Patient not taking: Reported on 05/23/2023) 20 Tablet 0 Atorvastatin Calcium 40 MG Oral Tablet (Lipitor) Take 1 Tablet (40 mg) by mouth in the morning. 90 Tablet 5 Nystatin 329826 UNIT/GM External Powder (Nystop) Apply topically to affected area 2 times a day. Apply to skin folds (Patient not taking: Reported on 03/27/2023) 15 g 0 Metoprolol Succinate ER 25 MG Oral Tablet Extended Release 24 Hour (toPROL XL) Take 1 Tablet by mouth in the morning. (Patient taking differently: Take 2 Tablets by mouth in the morning.) 30 Tablet 3 Fleet Enema 7-19 GM/118ML Rectal Enema Administer 1 Enema into the rectum daily as needed for Constipation. 1 Each 0 Torsemide 20 MG Oral Tablet (Demadex) 4 Tablets in the morning. Breo Ellipta 100-25 MCG/ACT Inhalation Aerosol Powder Breath Activated Inhale 1 Puff by mouth in the morning. Ipratropium-Albuterol 0.5-2.5 (3) MG/3ML Inhalation Solution (Duoneb) Inhale 3 mL via nebulizer every 4 hours as needed. (Patient not taking: Reported on 03/27/2023) oxyCODONE HCl 5 MG Oral Tablet (Oxy IR) Take 1 Tablet by mouth every 4 hours as needed for Pain, Severe. (Patient not taking: Reported on 03/26/2023) 5 Tablet 0 Docusate Sodium 100 MG Oral Capsule (Colace) Take 1 Capsule by mouth in the morning and 1 Capsule before bedtime. 60 Capsule 0 Dulaglutide 1.5 MG/0.5ML Subcutaneous Solution Pen-injector (Reebonz) Inject 1.5 mg under the skin once a week. 2 mL 5 Celecoxib 200 MG Oral Capsule (CeleBREX) take 1 capsule by mouth once daily if needed for pain 30 Capsule 1 Triamcinolone Acetonide 0.1 % External Cream (Aristocort) apply to affected area twice a day (Patient not taking: Reported on 03/27/2023) 15 g 5 Allopurinol 100 MG Oral Tablet (Zyloprim) 1 Tablet. Bisacodyl 5 MG Oral Tablet Delayed Release (bisacodyl EC) Take 1 Tablet by mouth daily as needed for Constipation. No current facility-administered medications for this visit. Past Medical History: Diagnosis Date CONSTIPATION 11/27/2009 1 HEMANGIOMA SKIN OF BACK 12/19/2009 6 SEBORRHEIC KERATOSIS OF BACK 12/19/2009 ACEI/ARB contraindicated 04/17/2017 BPH S/P TURP 11/27/2009 CKD (chronic kidney disease) stage 3, GFR 30-59 ml/min ([facility]) 11/07/2011 CKD (chronic kidney disease), symptom management only 06/21/2016 Coronary artery disease involving wilton coronary artery of wilton heart without angina pectoris 05/19/2019 Cuff erosion of artificial urinary sphincter ([facility]) 07/23/2019 DYSLIPIDEMIA WITH LOW HDL (goal LDL below 100) 02/21/2011 Elevated fasting glucose 11/07/2011 Epistaxis 07/27/2018 Left anterior nasal septal bleeder Esophageal reflux 11/27/2009 ESOPHAGEAL STRICTURE S/P DILATION 11/27/2009 FAMILY HX, ISCHEMIC HEART DISEASE 11/27/2009 Gastroesophageal reflux disease with esophagitis 01/04/2015 Gout tophi 12/19/2017 HEREDITARY SPASTIC PARAPLEGIA 11/27/2009 Herpes zoster without complication 12/19/2017 Hydrocele of testis 05/16/2014 Right sided Hypertension goal BP (blood pressure) < 140/90 06/25/2011 Irritable bowel syndrome 11/27/2009 Kidney disease, chronic, stage IV (GFR 15-29 ml/min) ([facility]) 12/12/2014 OBESITY (BMI 30-34) 02/21/2011 Obesity, Class II, BMI 35-39.9, isolated (see actual BMI) 06/20/2015 Obesity, Class II, BMI 35.0-39.9, with comorbidity (see actual BMI) 06/20/2015 Obstructive uropathy 05/19/2019 Requiring indwelling catheterization 05/04 Orchitis, right 07/15/201405/29 OSTEOARTHRITIS 04/10/2010 PILAR CYST OF LEFT FOREARM S/P REMOVAL 12/2312/19/2009 Pneumonia of left lower lobe due to infectious organism 05/19/201905/04 post cardiac surgery. S/P angioplasty with stent 05/19/201904/03 done at the same time as single vessel CABG. S/P CABG x 1 05/19/201904/03 done through a lateral approach. Done at the same time as stenting x2. STRESS INCONTINENCE 02/21/2011 TRANSITIONAL CELL CARCINOMA OF BLADDER 11/27/2009 Trigger finger 12/12/2014 Left thumb Past Surgical History: Procedure Laterality Date BLADDER ASPIRATION BY SUPRAPUBIC CATH N/A 07/22/2019 ASPIRATION OF BLADDER BY INSERTION OF SUPRAPUBIC CATHETER performed by Tylor Ricketts [place] [facility] [place] Bilateral CORRECT URINE FLOW CONTROL N/A 02/14/2021 INSERTION INFLATABLE URETHRAL BLADDER NECK SPHINCTER performed by Tylor Ricketts MD at [place] [facility] 07/12/2014 CYSTOSCOPY 02/14/2021 CYSTOURETHROSCOPY performed by Tylor Ricketts MD at [place] [facility] INFORMATION urinary control system INFORMATION B/l cataract removal. INFORMATION Heart catheterization w/ 3-4 stents. INFORMATION CABG x 1. INSERT/REPLACE PACEMAKER,ATRIAL/VENTRICULAR Left 06/12/2022 NEW DDD PACEMAKER IMPLANT performed by iGl Davis MD at [facility]; CHOLECYSTECTOMY N/A 04/30/2017 LAPAROSCOPIC CHOLECYSTECTOMY performed by Juwan Parker MD at OR [facility] LAPAROSCOPY; REPAIR INITIAL INGUINAL HERNIA Left 09/20/2020 ROBOTIC LAPAROSCOPIC REPAIR INGUINAL HERNIA INITIAL performed by Juwan Parker MD at OR [facility] RECONSTRUCTION OF URETHRA N/A 07/22/2019 URETHROPLASTY ONE STAGE MALE performed by Tylor Ricketts MD at [place] [facility] RECONSTRUCTION OF URETHRA N/A 08/14/2022 URETHROPLASTY ONE STAGE MALE performed by Tylor Ricketts MD at [place] [facility] REMOVE URO SPHINCTER N/A 07/22/2019 REMOVAL INFLATABLE URETHRAL BLADDER NECK SPHINCTER performed by Tylor Ricketts MD at [place] [facility] REMOVE URO SPHINCTER N/A 11/11/2019 REMOVAL INFLATABLE URETHRAL BLADDER NECK SPHINCTER performed by Tylor Ricketts MD at [place] [facility] REMOVE URO SPHINCTER N/A 08/14/2022 REMOVAL INFLATABLE URETHRAL BLADDER NECK SPHINCTER performed by Tylor Ricketts MD at [place] [facility] UMBIL HERNIA REPAIR (REDUCIBLE) AGE 5+YR N/A 09/20/2020 REPAIR UMBILICAL HERNIA AGE 5 AND OVER performed by Juwan Parker MD at OR [facility] Review of patient's allergies indicates: Allergen Reactions Norvasc [Amlodipine Besylate] Other (Please comment) Edema Family History Problem Relation Age of Onset Lung cancer Mother Alcohol and Other Disorders Associated Father Family Status Relation Status Mo Fa Social History Socioeconomic History Marital status: Spouse name: Not on file Number of children: Not on file Years of education: Not on file Highest education level: Not on file Occupational History Not on file Tobacco Use Smoking status: Former Current packs/day: 0.00 Average packs/day: 2.0 packs/day for 20.0 years (40.0 ttl pk-yrs) Types: Cigarettes Start date: 06/16/1963 Quit date: 06/16/1983 Years since quittin.1 Smokeless tobacco: Never Vaping Use Vaping Use: Never used Substance and Sexual Activity Alcohol use: No Drug use: No Sexual activity: Not on file Other Topics Concern Not on file Social History Narrative Not on file Social Determinants of Health Financial Resource Strain: Not on file Food Insecurity: No Food Insecurity (02/22/2019) Hunger Vital Sign Worried About Running Out of Food in the Last Year: Never true Ran Out of Food in the Last Year: Never true Transportation Needs: Not on file Physical Activity: Not on file Stress: Not on file Social Connections: Not on file Intimate Partner Violence: Not on file Housing Stability: Not on file Latest Ref Rng 06/14/2022 06/15/2022 06/17/2022 07/25/2022 07/31/2022 08/05/2022 08/12/2022 NEPH-FLOW Bun 6 - 20 mg/dL 58 (H) 58 (H) 64 (H) 32 (H) 28 (H) 34 (H) Cr 0.6 - 1.2 mg/dL 2.7 (H) 2.5 (H) 2.5 (H) 1.8 (H) 1.7 (H) 2.0 (H) eGFR >=60 mL/min 23 (L) 25 (L) 25 (L) 36 (L) 40 (L) 34 (L) eGFR >60 K 3.5 - 5.1 mmol/L 4.8 5.0 5.0 4.6 3.8 4.4 Hb 14.0 - 16.8 g/dL 14.0 (E) 15.1 08/04/23 BUN- 70.0 Scr- 2.3 Co2-31 -eGFR-27 Objective: There were no vitals taken for this visit. General: alert and no distress, on wheel chair Head: No masses, lesions, tenderness or abnormalities Oropharynx: mucous membranes are moist Neck: supple, no JVD Heart: regular rate & rhythm, no murmurs and no gallops Lungs: clear to auscultation Abdomen: abdomen soft and non-tender, LTC, Back: No CVA tenderness Extremities:1+ edema b/l with chronic skin changes BP Readings from Last 5 Encounters: 05/23/23 111/61 04/14/23 117/57 03/27/23 113/64 03/26/23 111/66 09/24/22 122/60 Wt Readings from Last 5 Encounters: 05/23/23 103.9 kg (229 lb) 05/16/23 104.3 kg (230 lb) 03/26/23 103.9 kg (229 lb) 09/18/22 102.5 kg (226 lb) 08/14/22 98.9 kg (218 lb) Wt- 232.6 pounds, bp-134/70>>>07/22/23 ASSESSMENT: 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 He understands the risk of this drug but he must use this to function given his multiple co- morbidities. Renal function have continued to remain stable over the last few years. Baseline Scr in late 1.0's to early 2.0. Alkalotic on the latest labs from 08/04-- but he is comfortable and his weight is steady>>>continue on 80 mg of lasix. -His fluid intake can be roughly the urine output in 24 hr + 750 to 1 lit. Presently on 80 mg torsemide, which he has been tolerating well. - He has now stopped taking Cerebrex regularly and takes it only when needed keeping it to minimum - there seems to be an element of Lymphedema as well, uses JESSICA hose Stockings during the day. 10 Htn, goal below 140/90 At goal. Not using LELAND and seems gets lot of edema with CCB. RTC in 4 months time with CMP, CBC, PTH and VD . Dipak Merchant MD This chart was completed in part utilizing [employer] Speech Voice Recognition Software. Randomword insertions, pronoun errors, and incomplete sentences are an occasional consequence of this system due to software limitations, and ambient noise. Any questions or concerns about the content, text, or information contained within the body of this dictation should be directly addressed to the provider for clarification. documented in this encounter Nursing Notes * Mimi Salinas LPN - 08/13/2023 11:06 AM EST Chief Complaint Patient presents with Follow Up documented in this encounter Plan of Treatment Upcoming Encounters Date Type Department Care Team (Late st Contact Info) Description 02/09/2024 11:00 AM EDT Office Visit Nephrology, Jessica [address] [place] [address] [address] [address] Dipak Merchant MD [address] [place] [address] Health Maintenance Due Date Last Done Comments Albumin/Creatinine Ratio 06/14/2017 016, 07/08/2014, 10/13/2013, Additional history exists Diabetic Foot Exam 11/02/2020 11/03/2019, 0 01/27/2019, 02/27/2018 Depression Screening 08/03/2022 08/03/2021, 10/25/19 17 GFR 02/09/2023 08/12/2022, 07/18, 07/31/2022, Additional history exists COVID-19 Vaccine ( season) 2023 06/19/2021, 07/18/2020, 06/20/2020 Influenza Vaccine (FLU shot) (#1) 2023 03/08/2022, 03/08/2022, 04/25/2021, Additional history exists Hgb 07/31/2023 07/31/2022, 02/0 02/2023, 06/13/2022, Additional history exists PTH 07/31/2023 07/31/2022, 1106/2021, 04/25/2021, Additional history exists Phosphate 07/31/2023 07/31/2022, 05/17, 04/16/2022, Additional history exists HbA1c 11/19/2023 05/20/2023, 07/17, 07/02/2022, Additional history exists Diabetic Eye Exam 01/10/2024 01/09/2023, 02/05/2019 Nephrology Referral 05/23/2024 05/23/2023 DTaP,Tdap,and Td Vaccines (3 - Td or Tdap) 10/18/2030 10/18/2020, 05/11/2010 Zoster Vaccines Completed 11/29/2021, 07/18, 03/11/2012 Pneumococcal Vaccine: 65+ Years Completed 03/20/2022, 10/17/2015, 03/20/2009 GARDASIL-HPV IMMUNIZATION SERIES Aged Out No longer eligible based on patient's age to complete this topic Hepatitis B Aged Out No longer eligi ble based on patient's age to complete this topic MENINGOCOCCAL (MENACTRA/MENVEO) Aged Out No longer eligible based on patient's age to complete this topic documented as of this encounter Medical Devices Implanted Type Area Admin Assistant Device Identifier Shelf Expiration Date Model / Serial / Lot Mesh 3dmax Nabsb Lg Lf 4x6in - [id number] Implanted:Qty: 1 on 09/20/2020 by Juwan Parker MD at OR [facility] Left: Abdomen CR BARD : DAVOL 04/12/2025 [id number] / / [id number] Lead Pace Selectsecure 3830-69 - [id number] Implanted:Qty: 1 on 06/12/2022 by Gil Davis MD at [facility] [employer] : CRM [id number] 05/07/2024 [id number] / [id number] / [id number] Device V-Loc 90 4-0 P-12 08/21 - [id number] Implanted:Qty: 1 on 06/12/2022 by Gil Davis MD at [facility] COVIDIEN : US SURGICAL SYNETUR [id number] 12/16/2022 [id number] / / Lead Pace Tendril 52cm - [id number] Implanted:Qty: 1 on 06/12/2022 by Gil Davis MD at [facility] [employer] : CARDIAC RHYTHM MGMT [id number] 01/13/20258TC/52 / [id number] / [id number] Pacemaker Dr-Rf [id number] - [id number] Implanted:Qty: 1 on 06/12/2022 by Gil Davis MD at [facility] [employer] [id number] 10/14/2023 [id number] / [id number] / [id number] documented as of this encounter Visit Diagnoses Diagnosis 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 Hypertrophy of prostate with urinary obstruction and other lower urinary tract symptoms (LUTS) Neurogenic bladder Neurogenic bladder, NOS HTN, goal below 140/90 Unspecified essential hypertension documented in this encounter Advance Directives Documents on File Type Date Recorded 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 Question Answer Comments Discussion of Advance Directives occurred with: Patient Code Status History Code Status Date Activated Date Inactivated Comments Full Code 02/14/2021 2:31 PM 02/15/2021 6:04 PM Question Answer Comments Discussion of Advance Direct devi occurred with: Not Discussed Full Code 11/11/2019 9:53 AM 11/12/2019 4:58 PM Question Answer Comments Discussion of Advance Direct devi occurred with: Not Discussed Full Code 07/22/2019 1:35 PM 07/23/2019 6:13 PM Question Answer Comments Discussion of Advance Direct devi occurred with: Not Discussed Care Teams [place] Former Machine Operator Relationship Specialty Start Date End Date Tami Waddell DO [address] [address] PCP - General Family Medicine 05/06/23 documented as of this encounter
--- OUTSIDE RECORDS SUMMARY | 2023-08-15 05:08 | External Medical Summary | Continuity Of Care Document ---
Author Name Unknown Address [address] [address] Organization [facility] () Care Team Providers Care Lumber Sorter Name Role Phone DO Waddell Amy Primary Care Provider [phone] Problems Code Description Start Date End Date Status I44.1 Atrioventricular block, second degree Active Z95.0 Presence of cardiac pacemaker 06/20/2022 Active R00.1 Bradycardia, unspecified 06/20/2022 Active Z96.89 Presence of other specified functional implants 06/20/2022 Active K58.9 Irritable bowel syndrome without diarrhea 06/20 Active M10.9 Gout, unspecified 06/20/2022 Active E78.5 Hyperlipidemia, unspecified 06/20/2022 00 Active E11.9 Type 2 diabetes mellitus without complications 06/20/2022 Active I50.20 Unspecified systolic (congestive) heart failure 06/20/2022 Active N40.0 Benign prostatic hyp erplasia without lower urinary tract symptoms 06/20/2022 Active N13.9 Obstructive and reflux uropathy, unspecified Active I25.10 Atherosclerotic hear t disease of [place] coronary artery without angina pectoris 06/20/2022 Active 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 Active M62.81 Muscle weakness (generalized) 06/20/2022 Active R26.2 Difficulty in walking, not elsewhere classified 06/20/2022 Active R53.1 Weakness 06/20/2022 Active R41.841 Cognitive communication deficit 06/20/2022 00/0 Active M62.81 Muscle weakness (generalized) 05/05/2023 Active R26.81 Unsteadiness on feet 05/05/2023 Acti ve M62.81 Muscle weakness (generalized) 11/29/2022 Active R26.2 Difficulty in walking, not elsewhere classified 11/29/2022 Active M62.81 Muscle weakness (generalized) 02/13/2023 Active M62.81 Muscle weakness (generalized) 09/12/2022 Active R29.3 Abnormal posture 09/28/2022 Active R27.8 Other lack of coordination 09/28/2022 0 Active N39.0 Urinary tract infection, site not specified Active VITAL SIGNS Date Time Diastolic blood pressure Systolic blood pressure Body height Body weight Temperature SpO2 Blood Sugar Pulse Respirations 126 64029 9 230.80 NI 07312 128 27146 1 229.80 NI 54585 129 16038 1 229.00 NI 80053 130 90955 0 229.40 NI 56827 131 37558 0 229.80 NI 09570 201 82692 1 12832 202 40451 3 57952 203 57370 2 74.00/ min 18.00/min 55693 203 33014 3 70.00 mm[Hg] - Sitting 134.00 mm[Hg] - Sitting 97.40 Tympanic 84181 203 03984 1 55136 204 69131 0 33895 205 28355 1 232.60 NI 20592 206 85033 8 75442 207 26826 6 226.00 NI 49602 207 74783 4 226.00 NI 66282 208 46803 2 227.80 NI 04989 209 70214 0 229.40 NI 12403 210 94733 3 228.20 NI 79352 212 76795 1 229.20 NI 91189 213 31689 3 227.80 NI 90866 214 28844 4 227.40 NI 97447 215 41845 7 224.00 NI 69390 216 25493 5 228.40 NI 43905 217 03689 6 228.80 NI 27454 218 59009 0 227.20 NI 47683 219 22296 9 227.60 NI 43288 220 93730 0 233.40 NI 86432 221 76618 4 227.00 NI 41112 222 29095 4 227.60 NI 83707 224 03350 6 95498 224 86727 1 226.60 NI 73791 225 44159 8 229.80 NI Immunizations Vaccine Date Status COVID-19 06/20/2020 Completed COVID-19 07/18/2020 Completed COVID-19 06/19/2021 Completed Influenza 03/08/2022 Completed Influenza 03/25/2023 Completed (PCV13)Pneumococcal 10/17/2015 Completed Other 10/18/2020 Completed (PPSV23)Pneumococcal 03/20/2009 Completed (PCV20)Pneumococcal 03/20/2022 Completed Shingles 08/07/2021 Completed
--- OUTSIDE RECORDS SUMMARY | 2023-08-15 05:08 | External Medical Summary | Continuity Of Care Document ---
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 Name Role Phone DO Waddell Amy Primary Care Provider [phone] Problems Code Description Start Date End Date [...] Active I25.10 Atherosclerotic hear t disease of [place] coronary artery without angina pectoris 06/20/2022 Active [...] weight Temperature SpO2 Blood Sugar Pulse Respirations 88469 123 67658 5 01900 124 38656 4 25110 125 95769 9 02255 126 63924 9 230.80 NI 62461 128 50947 1 229.80 NI 84707 129 42252 1 229.00 NI 20556 130 79447 0 229.40 NI 08047 131 76263 0 229.80 NI 49328 201 86697 1 83535 202 43701 3 40255 203 03990 2 74.00/ min 18.00/min 84869 203 11271 3 70.00 mm[Hg] - Sitting 134.00 mm[Hg] - Sitting 97.40 Tympanic 77894 203 27513 1 29621 204 53355 0 23664 205 63253 1 232.60 NI 98257 206 88645 8 58099 207 27039 6 226.00 NI 66074 207 10066 4 226.00 NI 77367 208 52923 2 227.80 NI 44270 209 00983 0 229.40 NI 98796 210 10056 3 228.20 NI 92731 212 44725 1 229.20 NI 13015 213 50084 3 227.80 NI 06638 214 42098 4 227.40 NI 65406 215 60498 7 224.00 NI 41838 216 88308 5 228.40 NI 82682 217 24499 6 228.80 NI 80894 218 20744 0 227.20 NI 24613 219 13910 9 227.60 NI 49071 220 04397 0 233.40 NI 85083 221 82780 4 227.00 NI 87335 222 80900 4 227.60 NI Immunizations Vaccine Date Status COVID-19 06/20/2020 Completed COVID-19 07/18/2020 Completed COVID-19 06/19/2021 Completed Influenza 03/08/2022 Completed Influenza 03/25/2023 Completed (PCV13)Pneumococcal 10/17/2015 Completed Other 10/18/2020 Completed (PPSV23)Pneumococcal 03/20/2009 Completed (PCV20)Pneumococcal 03/20/2022 Completed Shingles 08/07/2021 Completed
--- OUTSIDE RECORDS SUMMARY | 2023-08-15 05:08 | External Medical Summary | Summary of Care ---
Author Name Unknown Organization [facility] Address [address] [place] [address] Phone [phone] Care Team Providers Care Home Health Clinician Name Role Phone Tami Waddell DO Primary Care Provider [phone] Reason for Visit * Reason Comments Follow Up Encounter Details Date Type Department Care Team (Late st Contact Info) Description 08/13/2023 11:00 AM EST Office Visit NephrologyJessica [address] [place] [address] [address] [address] Dipak Merchant MD [address] [place] [address] [address] [address] Stage 3b chronic kidney [...] morning. 90 Tablet 5 04/24/2022 Active Nystatin 233682 UNIT/GM External Powder (Nystop) Apply topically to [...] A1c goal of less than 8.0% ([facility]) Inject 1.5 mg under the skin once a week. 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 ([facility]),Type 2 diabetes mellitus with stage 4 chronic kidney disease, without long-term current use of insulin ([facility]),Coronary artery disease involving [place] coronary artery of [place] heart without angina pectoris take 1 capsule [...] management only, stage 4 (severe) 06/26/2020 Old MA (myocardial infarction) 10/05/2019 Systolic CHF 05/19/2019 Coronary artery disease invo lving [place] coronary artery of [place] heart without angina pectoris 05/19/2019 S/P angioplasty [...] (Prevnar) 10/17/2015 Pneumococcal Conjugate Vacci ne, 20-valent ([id number]) 03/20/2022 Pneumococcal Polysaccharide PPV23 (Pneumovax) 03/20/2009 Seasonal [...] edema about the same., At rehab at [facility].OnAbx for cellutis of L leg. 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 90 Tablet 5 Nystatin 737238 UNIT/GM External Powder (Nystop) Apply topically to [...] 0 Dulaglutide 1.5 MG/0.5ML Subcutaneous Solution Pen-injector ([employer]) Inject 1.5 mg under the skin once [...] disease) stage 3, GFR 30-59 ml/min ([facility]) 11/07/2011 CKD (chronic kidney disease), symptom management only 06/21/2016 Coronary artery disease involving [place] coronary artery of [place] heart without angina pectoris 05/19/2019 Cuff erosion of artificial urinary sphincter ([facility]) 07/23/2019 DYSLIPIDEMIA WITH LOW HDL (goal LDL [...] chronic, stage IV (GFR 15-29 ml/min) ([facility]) 12/12/2014 OBESITY (BMI 30-34) 02/21/2011 Obesity, Class [...] performed by Tylor Ricketts MD at [place] [facility] CARPAL TUNNEL SURGERY Bilateral CORRECT URINE FLOW CONTROL N/A 02/14/2021 INSERTION INFLATABLE URETHRAL BLADDER NECK SPHINCTER performed by Tylor Ricketts MD at [place] [facility] CYSTOSCOPY 07/12/2014 CYSTOSCOPY 02/14/2021 CYSTOURETHROSCOPY performed by Tylor Ricketts MD at [place] [facility] INFORMATION urinary control system INFORMATION B/l cataract removal. INFORMATION Heart catheterization w/ 3-4 stents. INFORMATION CABG x 1. INSERT/REPLACE PACEMAKER,ATRIAL/VENTRICULAR Left 06/12/2022 NEW DDD PACEMAKER IMPLANT performed by Gil Davis MD at [facility] LAPAROSCOPY; CHOLECYSTECTOMY N/A 04/30/2017 LAPAROSCOPIC CHOLECYSTECTOMY performed by Juwan Parker MD at OR [facility] LAPAROSCOPY; REPAIR INITIAL INGUINAL HERNIA Left 09/20/2020 ROBOTIC LAPAROSCOPIC REPAIR INGUINAL HERNIA INITIAL performed by Juwan Parker MD at OR [facility] RECONSTRUCTION OF URETHRA N/A 07/22/2019 URETHROPLASTY ONE STAGE MALE performed by Tylor Ricketts MD at [place] [facility] RECONSTRUCTION OF URETHRA N/A 08/14/2022 URETHROPLASTY ONE STAGE MALE performed by Tylor Ricketts MD at [place] [facility] REMOVE URO SPHINCTER N/A 07/22/2019 REMOVAL INFLATABLE URETHRAL BLADDER NECK SPHINCTER performed by Tylor Ricketts MD at OR [facility] REMOVE URO SPHINCTER N/A 11/11/2019 REMOVAL INFLATABLE URETHRAL BLADDER NECK SPHINCTER performed by Tylor Rciketts MD at OR [facility] REMOVE URO SPHINCTER N/A 08/14/2022 REMOVAL INFLATABLE URETHRAL BLADDER NECK SPHINCTER performed by Tylor Ricketts MD at [place] [facility] UMBIL HERNIA REPAIR (REDUCIBLE) AGE 5+YR N/A 09/20/2020 REPAIR UMBILICAL HERNIA AGE 5 AND OVER performed by Juwan Parker MD at OR [facility] Review of patient's allergies indicates: Allergen [...] This chart was completed in part utilizing [employer] Speech Voice Recognition Software. Randomword insertions, pronoun [...] Care Team (Late st Contact Info) Description 01/01/2024 11:20 AM EDT Office [address] [address] Dipak Merchant MD [address] [place] [address] [place] [address] 02/09/2024 11:00 AM EDT Office Visit Nephrology, [address] [place] [address] Dipak Merchant MD [address] [place] [address] [address] [address] Health Maintenance Due Date [...] 06/13/2022, Additional history exists PTH 07/31/2023 07/31/2022, 11/0 06/2021, 04/25/2021, Additional history exists Phosphate 07/31/2023 07/31/2022, [...] this encounter Medical Devices Implanted Type Area Substance Abuse Nurse Device Identifier Shelf Expiration Date Model / Serial / Lot Mesh 3dmax Nabsb Lg Lf 4x6in - [id number] Implanted:Qty: 1 on 09/20/2020 by Juwan Parker MD at OR [facility] Left: Abdomen CR BARD : DAVOL 04/12/2025 [id number] / / [id number] Lead Pace Selectsecure 3830-69 - [id number] Implanted:Qty: 1 on 06/12/2022 by Gil Davis MD at [facility] [employer] : CRM [id number] 05/07/2024 [id number] / [id number] / [id number] Device V-Loc 90 4-0 P-12 /8 - [id number] Implanted:Qty: 1 on 06/12/2022 by Gil Davis MD at [facility] COVIDIEN : [place] SURGICAL SYNETUR [id number] 12/16/2022 [id number] / / Lead Pace Tendril 52cm - [id number] Implanted:Qty: 1 on 06/12/2022 by Gil Davis MD at [facility] [employer] : CARDIAC RHYTHM MGMT [id number] 2025 2088TC/52 / [id number] / [id number] Pacemaker Dr-Rf [id number] - [id number] Implanted:Qty: 1 on 06/12/2022 by Gil Davis MD at [facility] [employer] [id number] 10/14/2023 [id number] / [id number] documented as of this encounter Visit Diagnoses Diagnosis 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 Hypertrophy of prostate with urinary obstruction and other lower urinary tract symptoms (LUTS) Neurogenic bladder Neurogenic bladder, NOS HTN, goal below 140/90 Unspecified essential hypertension documented in this encounter Advance Directives Documents on File Type Date Recorded 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
[2023-08-15 07:58] LABS: Hematocrit (blood only) 39.2 % (42.0-52.0); Hemoglobin 12.3 g/dl (14.0-18.0); Mean Corpuscular Hemoglobin 27.2 pg (25.0-34.0); Mean Corpuscular Hgb Conc 31.4 g/dL (32.0-36.0); Mean Corpuscular Volume 86.5 fL (80.0-100.0); Mean Platelet Volume 10.5 fL (9.4-12.4); Platelet Count 156 K/uL (130-400); RDW Coefficient of Variation 16.2 % (11.5-14.5); RDW Standard Deviation 50.4 fL (36.4-46.3); Red Blood Count 4.53 M/uL (4.70-6.10); White Blood Count 8.06 K/ul (4.8-10.8)
[2023-08-15 08:11] LABS: BUN Creatinine Ratio 17.2 (10-20); Calcium 9.2 mg/dl (8.6-10.3); Creatinine Clr Calc Pharmacy 33.5 ml/min; Est GFR (African American) 34.1 ml/min; Est GFR (Non-African American) 29.4 ml/min; Potassium 4.7 mmol/L (3.5-5.1)
--- NOTE | 2023-08-15 08:57 | Urology Progress Note ---
Date of Service August 15, 2023 Assessment & Plan (1) Neurogenic bladder: (2) Chronic indwelling Carrillo catheter: (3) S/P TURP: Plan: - Pt POD#1 s/p TURP with Dr. Doran - Doing well, progressing as expected - Afebrile, lab work reviewed - creatinine stable, no leukocytosis - Tolerating PO diet - Carrillo patent and draining clear yellow urine - Maintain Carrillo catheter upon discharge, maintain for likely 3 to 4 weeks - Will discharge with course of PO antibiotics - Expected clinical course reviewed, all questions answered - Patient ready for discharge now, will place orders - Outpatient follow-up in place Admission and Anticipated Discharge Date Admission Date: August 14, 2023 Subjective Patient seen and examined at bedside this morning. No acute issues overnight. He denies pain. Carrillo is patent and draining clear yellow urine. Tolerating p.o. diet. Denies fever, chills, nausea or vomiting. Denies other concerns at this time. Review of Systems Constitutional: as per Subjective / HPI Gastrointestinal: as per Subjective / HPI Genitourinary: + as per Subjective / HPI Physical Exam Constitutional: comfortable; no acute distress Respiratory: normal respiratory effort; no respiratory distress and no labored breathing Gastrointestinal (Abdomen): Inspection/Auscultation: abdomen normal to inspection Musculoskeletal: Head/Neck/Chest: normocephalic Neurologic: moves all extremities and awake Psychiatric: Orientation: alert and oriented x 3 Genitourinary: Carrillo patent and draining clear yellow urine Results & Data Vital Signs (Past 12 Hours) Vital Signs Temp Pulse Pulse Pulse Resp BP Pulse Ox 08/15/23 07:37 08/15/23 07:31 36.5 C 93 H 18 119/76 92 08/15/23 05:52 93 H 08/15/23 04:08 37 C 93 H 16 122/74 94 08/15/23 00:00 90 08/14/23 23:33 36.8 C 95 H 18 117/70 93 O2 Del Method 08/15/23 07:37 Room Air 08/15/23 07:31 Room Air 08/15/23 05:52 08/15/23 04:08 Room Air 08/15/23 00:00 08/14/23 23:33 Room Air PG Care Time/CCT Total # of Minutes Spent Total Time Spent with Patient: Total time spent is greater than 50% in coordination of care (as documented) at patient's floor/unit and/or counseling patient: Coding Level of Care Code None Diagnoses Neurogenic bladder N31.9 Chronic indwelling Carrillo catheter Z97.8 S/P TURP Z90.79
[2023-08-15] MEDS: FLUTICASONE/VILANTEROL 100/25MCG 14 PUFFS/INHALER INH SCH (09:04)
[2023-08-15] MEDS: linaCLOtide 72 MCG CAPSULE PO SCH (09:06)
[2023-08-15] MEDS: TORSEMIDE 20 MG TAB PO SCH (09:07)
[2023-08-15] MEDS: VIBEGRON 75 MG TAB PO SCH (09:07)
[2023-08-15] MEDS: POLYETHYLENE (MIRALAX) 17 GM PACK PO SCH (09:07)
[2023-08-15] MEDS: ATORVASTATIN 40 MG TAB PO SCH (09:07)
[2023-08-15] MEDS: METOPROLOL SUCC 50MG EXT REL TAB PO SCH (09:07)
[2023-08-15] MEDS: allopurinoL 100 MG TAB PO SCH (09:07)
--- NOTE | 2023-08-15 09:50 | Discharge Summary ---
Date of Service August 15, 2023 Admission HPI Per Admitting Provider Patient here for procedure. No changes in medical issues. No major changes in urinary issues. Continued issues and concerns. No change in pain or discomfort. No severe fevers or chills. No chest pain or shortness of breath. Risks and benefits discussed at length for procedure. These include bleeding, infection, injury to surrounding tissues or organs, and risks associated with anesthesia. Patient and/or family states understanding and agrees to proceed. Consent and supporting information completed. Admission Exam Per Admitting Provider General: Alert/Arousable. No Acute illness. Baseline significant chronic issues. HEENT: Inspection normal. Normal inspection of face. Normal inspection of neck. Psychologic: Normal affect/No change in mentation. Respiratory: No use of accessory muscles. No respiratory changes or exacerbation or changes with tachypnea or dyspnea. Cardiovascular: No tachycardia Skin: [place] and Dry. No new rashes or visible lesions. Abdomen: Normal inspection. No guarding. Principal Diagnosis Urinary retention Discharge Exam Constitutional comfortable; no acute distress Respiratory normal respiratory effort; no respiratory distress and no labored breathing Gastrointestinal (Abdomen) Inspection/Auscultation: abdomen normal to inspection Musculoskeletal Head/Neck/Chest: normocephalic Neurologic moves all extremities and awake Psychiatric Orientation: alert and oriented x 3 Genitourinary Foster patent and draining yellow urine Discharge Data Allergies Allergy/AdvReac Type Severity Reaction Status Date / Time amlodipine [From [facility]] Allergy Unknown listed in Verified 08/14/23 10:50 correction H&P Consultations 08/14/23 13:31 Consult Hospitalist Routine Procedures Performed Operation Date: 08/14/23 11:50 Actual Procedures p Transurethral Resection Prostate, (Not Applicable) - Rich Doran, DO Hospital Course (1) Neurogenic bladder: (2) Chronic indwelling Foster catheter: (3) S/P TURP: - Pt POD#1 s/p TURP with Dr. Doran - Doing well, progressing as expected - Afebrile, lab work reviewed - creatinine stable, no leukocytosis - Tolerating PO diet - Foster patent and draining clear yellow urine - Maintain Foster catheter upon discharge, maintain for likely 3 to 4 weeks - Will discharge with course of PO antibiotics - Expected clinical course reviewed, all questions answered - Patient ready for discharge now, will place orders - Outpatient follow-up in place Total Time Total Time Spent Total Time Spent (In Minutes): 29 Discharge Plan Discharge Items Patient Disposition: Transfer [facility] Reason For Visit: RETENTION Discharge Diagnosis: Urinary retention Activity: Per Instructions section Lifting: No more than 10 pounds Bathing Comment: Okay to shower after discharge, no tub bath or soaking Sexual Activity: Wait until after follow-up appointment Exercise/Sports: Wait until after follow-up appointment Non-emergency contact: Surgeon and Urologist Call non-emergency contact if: your pain is not controlled and your temperature is above 101 Follow-up/Referrals: Rich Doran DO [Physician] - 09/10/23 11:15 am Tami Waddell DO [Primary Care Provider] - Diet: Regular Addtl Attending Provider Instructions: Please take all medications as prescribed and keep all follow-ups as scheduled. Please call our office at [phone] with any questions, concerns or need to reschedule appointments for any reason. We are happy to assist you. Tips for your recovery at home: Dont be alarmed by brownish or reddish blood or clots in your urine. This is a result of the procedure. This may occur off and on for weeks to months after the procedure but should continue to improve. Drink plenty of fluids during the day (enough to keep your urine very light colored). This will help keep a healthy flow of urine. Do not lift >25 lbs until your followup Avoid constipation. Please use a stool softener (Colace) for the first two weeks after your procedure Be sure to finish the antibiotics as prescribed. If you go home with a catheter, please wash tubing where it enters your body twice daily with mild soap (Dove or Dial). Once your catheter is removed, expect some blood in your urine and some burning when you urinate. You should have an appointment to have this removed, if you do not please call our office to arrange. Pending Studies at Discharge: Yes Studies:: pathology Stand-Alone Forms: My [employer], Smoking Cessation Skilled Items Patient informed of condition?: Yes DNR: No Discharge Level of Care: Other Communicable Disease: No Discharge Prognosis: Stable Lines: None Urinary Catheter: Yes Medications and DC Order Prescriptions: New cephalexin 500 mg capsule 500 mg PO BID 7 Days Qty: 14 0RF Continued atorvastatin 40 mg tablet 40 mg PO QAM torsemide 20 mg tablet 80 mg PO QAM metoprolol succinate 50 mg tablet extended release 24 hr 50 mg PO QAM dextromethorphan-guaifenesin [Tussin DM] 10-100 mg/5 mL Liquid 10 ml PO Q4H PRN (Reason: Cough) allopurinol 100 mg tablet 100 mg PO QAM acetic acid 0.25 % Solution 10 ml irrigation Q7D Rx Instructions: flush foster catheter once weekly polyethylene glycol 3350 [Miralax] 17 gram/dose Powder 17 g PO QAM cetylpyridinium chloride Lozenge 1 bree MUCOUS MEMBRANE Q4H PRN (Reason: Sore Throat) Nasal Mist 0.9 % Aerosol,Kendall 1 spray INTRANASAL TID Dakin's Solution 0.125 % Solution 1 irrig TOPICAL BID Rx Instructions: cleanse venous ulcer to left calf w/dakins solution, pat dry; apply MH to wound base, cover w/bordered foam dressing QAM and HS. Myrbetriq 50 mg tablet extended release 24 hr 50 mg PO QAM MediHoney (honey) 80 % Gel 1 applic TOPICAL BID Rx Instructions: cleanse venous ulcer to left calf w/dakins solution, pat dry; apply MH to wound base, cover w/bordered foam dressing QAM and HS. fluticasone furoate-vilanterol [Breo Ellipta] 100-25 mcg/dose blister with device 1 ea INHALATION QAM Trulicity 1.5 mg/0.5 mL pen injector 1.5 mg SUBCUT Q7D Patient Comments: instructions to hold for sx 08/06/23-08/15/23 Rx Instructions: every week on friday Linzess 72 mcg capsule 72 mcg PO QAM aspirin 81 mg Capsule 81 mg PO QAM Prevagen 1 cap PO QAM celecoxib 200 mg capsule 200 mg PO DAILY PRN (Reason: Breakthrough Pain) acetaminophen 325 mg Tablet 650 mg PO QID PRN (Reason: Pain) Rx Instructions: do not exceed 3000mg APAP/24 hours albuterol sulfate 2.5 mg /3 mL (0.083 %) solution for nebulization 2.5 mg inhalation QID PRN (Reason: Wheezing) mineral oil Enema 118 ml KY DAILY PRN (Reason: Constipation) Rx Instructions: discard any unused portion; on day 6 of no BM bisacodyl [Dulcolax (bisacodyl)] 10 mg Suppository 10 mg KY DAILY PRN (Reason: Constipation) Rx Instructions: if milk of magnesia ineffective on day 5 of no BM flavoxate 100 mg tablet 100 mg PO Q6H PRN (Reason: Bladder Spasms) ketoconazole 2 % cream 1 applic TOPICAL UD Rx Instructions: apply to face and neck rash BID, may also apply to chest and axillary area at same times prn coal tar 0.5 % Shampoo 1 applic TOPICAL UD Rx Instructions: use shampoo three times weekly to scalp and eyebrows for dry skin sodium chloride 0.9 % (flush) [Normal Saline Flush] Syringe 10 ml intra-catheter Q1H PRN (Reason: hematuria) Rx Instructions: may flush foster catheter every hour prn for gross hematuria zinc oxide 40 % Ointment 1 applic TOPICAL UD PRN (Reason: MASD) Rx Instructions: cleanse buttocks w/NSS, pat dry, apply cream as needed Discharge Orders: Discharge Order (Routine); Ordered 08/15/23 Ordered By: Nazia Fong Admission Data Admit Date/Time: 08/14/23 13:37 Attending Provider: Rich Doran Admit Provider: Rich Doran Primary Care Provider: Tami Waddell Other Providers: Irma Tolbert Other Interventions: Discharge Summary Assessment (RN) Last Done: 08/15/23 11:16 Coding Level of Care Code 66044 IN/OBS DISCH 30 MIN/LESS Diagnoses Neurogenic bladder N31.9 Chronic indwelling Foster catheter Z97.8 S/P TURP Z90.79
--- NOTE | 2023-08-15 11:36 | Hospitalist Progress Note ---
Date of Service August 15, 2023 Assessment & Plan (1) S/P TURP: Plan: -POD1 from TURP procedure for bladder cancer causing obstructive symptoms -Hgb 13.2 s/p OR -Pain control per urology primary -Agree with Zosyn for now, consider de-escalation to Rocephin if continued improvement and transition to PO agent cefdinir -Monitor CBC (2) CAD (coronary artery disease): Plan: -Chronic, stable, no ACS at present -Continue metoprolol, atorvastatin. Would recommend resuming aspirin on 08/14 given history of CABG + 2x stents (3) Chronic systolic (congestive) heart failure: Plan: -Chronic, stable, not in exacerbation -Euvolemic on exam -Continue metoprolol, torsemide (4) Heart block: Plan: -S/p pacemaker -No acute issues -Telemetry monitoring (5) COPD (chronic obstructive pulmonary disease): Plan: -Chronic, stable, not in exacerbation -Stable respiratory status on RA at present -Continue Breo, albuterol PRN (6) Chronic renal disease, stage IV: Plan: -Cr 1.66 on admission, unknown baseline -Monitor BMP (7) DM2 (diabetes mellitus, type 2): Plan: -BSGs elevated in low 200s -Diet switched to DM diet -SSI ordered, deferring basal coverage for now (8) Gout: Plan: -Continue allopurinol (9) IBS (irritable bowel syndrome): Plan: -Continue Linzess (10) Hypertension: Plan: -BP stable -Continue metoprolol (11) Hypercholesteremia: Plan: -Continue atorvastatin (12) History of venous stasis ulcer of lower leg: Plan: -Continue local wound care -Low suspicion for active infection, deferring additional MRSA coverage antibioics (13) Overactive bladder: Plan: -Continue Gemtesa Plan Discharge plans per urology Admission and Anticipated Discharge Date Admission Date: August 14, 2023 Subjective Patient seen and examined, he is stable post TURP Review of Systems Review of Systems: All systems reviewed are negative, apart from the ones contained in the history. Physical Exam Physical Exam: The patient is awake, alert and oriented 3, well developed and well nourished, normocephalic and atraumatic, lying in bed and in no acute distress. HEENT--PERRL, EOMI, mucous membranes and oropharynx mildly dry Neck--supple. No JVD. No bruits. Thyroid normal, trachea midline, no adenopathy. Heart--normal S1 and S2. No murmurs, rubs or gallops. Lungs--clear bilaterally, no respiratory distress, no accessory muscle use. Abdomen--normal bowel sounds and soft. Extremities--no cyanosis or clubbing. No edema. Dermatologic--normal skin turgor, normal color, no abnormal lymph nodes, no rash. Neurologic--cranial nerves II through XII grossly intact. Rheumatologic--normal range of motion. Psychiatric--normal affect. Results & Data Results & Data Vital Signs (Past 12 Hours) Vital Signs Temp Pulse Pulse Pulse Resp BP Pulse Ox 08/15/23 11:16 97.7 F 93 H 93 H 18 119/76 92 08/15/23 07:37 08/15/23 07:31 97.7 F 93 H 18 119/76 92 08/15/23 05:52 93 H 08/15/23 04:08 98.6 F 93 H 16 122/74 94 08/15/23 00:00 90 O2 Del Method 08/15/23 11:16 08/15/23 07:37 Room Air 08/15/23 07:31 Room Air 08/15/23 05:52 08/15/23 04:08 Room Air 08/15/23 00:00 PG Care Time/CCT Total # of Minutes Spent Total Time Spent with Patient: Total time spent is greater than 50% in coordination of care (as documented) at patient's floor/unit and/or counseling patient: Coding Level of Care Code 15991 SUB INP/OBS CARE 2/35MIN Diagnoses S/P TURP Z90.79 CAD (coronary artery disease) I25.10 Chronic systolic (congestive) heart failure I50.22 Heart block I45.9 COPD (chronic obstructive pulmonary disease) J44.9 Chronic renal disease, stage IV N18.4 DM2 (diabetes mellitus, type 2) E11.9 Gout M10.9 IBS (irritable bowel syndrome) K58.9 Hypertension I10 Hypercholesteremia E78.00 History of venous stasis ulcer of lower leg Z86.79 Overactive bladder N32.81 Time Spent (min) 35
--- OUTSIDE RECORDS SUMMARY | 2023-08-16 08:36 | External Medical Summary | Continuity Of Care Document ---
Author Name Unknown Address [address] [address] Organization [facility] () Care Team Providers Care Field Pipelines Supervisor Name Role Phone DO Waddell Amy Primary Care Provider [phone] Problems Code Description Start Date End Date [...] Active I25.10 Atherosclerotic hear t disease of [place] coronary artery without angina pectoris 06/20/2022 Active [...] weight Temperature SpO2 Blood Sugar Pulse Respirations 13886 131 68745 0 229.80 [place] [address]67 201 02489 1 82620 202 34103 3 89642 203 73703 2 74.00/ min 18.00/min 12378 203 20992 3 70.00 mm[Hg] - Sitting 134.00 mm[Hg] - Sitting 97.40 Tympanic 14294 203 41175 1 09515 204 51740 0 15798 205 15308 1 232.60 NI 25368 206 10648 8 67334 207 43384 6 226.00 NI 35268 207 87122 4 226.00 NI 41020 208 33622 2 227.80 NI 65159 209 57487 0 229.40 NI 71405 210 95144 3 228.20 NI 49397 212 07975 1 229.20 NI 75860 213 55592 3 227.80 NI 88653 214 63728 4 227.40 NI 29829 215 47744 7 224.00 NI 47101 216 43685 5 228.40 NI 83052 217 47919 6 228.80 NI 25869 218 80391 0 227.20 NI 53261 219 65131 9 227.60 NI 28240 220 68299 0 233.40 NI 54632 221 43033 4 227.00 NI 30819 222 40688 4 227.60 NI 38067 224 43915 6 82069 224 25512 1 226.60 NI 62479 225 04646 8 229.80 NI 14471 226 26398 2 228.00 NI 50682 228 47757 0 226.40 NI 25157 229 79892 7 229.80 NI Immunizations Vaccine Date Status COVID-19 06/20/2020 Completed COVID-19 07/18/2020 Completed COVID-19 06/19/2021 Completed Influenza 03/08/2022 Completed Influenza 03/25/2023 Completed (PCV13)Pneumococcal 10/17/2015 Completed Other 10/18/2020 Completed (PPSV23)Pneumococcal 03/20/2009 Completed (PCV20)Pneumococcal 03/20/2022 Completed Shingles 08/07/2021 Completed
== END 2023-08-15 11:17 ==
LOC: PACUINP 10:23 → ASU 10:23 → 2N 16:36